=== PATIENT | female | born 2000 | race Hispanic/Latino ===

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

== ENCOUNTER 2019-09-28 17:47 | Emergency (ER) | payer SELFPAY ==
--- OUTSIDE RECORDS SUMMARY | 2019-09-28 17:54 | XMS REPORT | Continuity of Care Document ---
:2000 Author Organization [facility] t Address [address] [place] [address] Care Team Providers Name Role Phone Silva IBANEZ Attending Clinician Frandy Kearney DO Attending Clinician Camila Anthony Attending Clinician Ac SANCHEZ Attending Clinician Josh SANCHEZ Attending Clinician Henry Boston MD Attending Clinician [phone] Live Cabello MD Attending Clinician Henry Boston MD Admitting Clinician [phone] Problems This patient has no known problems. Allergies, Adverse Reactions, Alerts This patient has no known allergies or adverse reactions. Medications This patient has no known medications. Procedures This patient has no known procedures. Encounters Start End Encounter Admission Attending Care Care Encounter Source Date/Time Date/Time Type Type Clinicians Facility Department ID 2019-05-06 2019-05-06 [facility] JORGE ALBERTO Ascencio [id number] 19:22:57 19:37:57 ne Visit [facility] [id number] [facility] [id number] [place] AT [id number] [address] 2019-05-03 2019-05-03 Emergency Caio, [facility] [id number] 17:52:28 19:26:00 Meg Wise Abraham [id number] [place] [id number] [place] [id number] 2019-04-28 2019-04-28 Emergency Jada, [facility] [id number] 20:50:16 22:01:00 Jolene Jensen Abraham [id number] [place] [id number] [place] [id number] 2018-09-22 2018-09-22 Telephone Susanpati [facility] [id number] 00:00:00 00:00:00 Dipak Rosario [id number] [place] [id number] [place] [id number] [address] 2018-09-18 2018-09-21 [facility] Christian Moreno [facility] [id number] 20:03:25 18:40:00 Encounter Amber Boston on [id number] Prachi Cabello [place] [id number] [place] [id number] [facility] 2018-09-21 2018-09-21 Telephone Prachi Cabello [facility] [id number] 00:00:00 00:00:00 Live Rosario [id number] [place] [id number] [facility] [id number] [address] 2018-06-18 2018-06-18 Emergency E [facility] [id number] [facility] 19:39:00 19:39:00 Results This patient has no known results.
[2019-09-28 18:37] LABS: Urine Bacteria <20 /HPF (<20); Urine Culture Reflex Order REFLEXED; Urine Mucus 1+ /HPF (NONE SEEN); Urine RBC 20-50 /HPF (NONE SEEN)
--- NOTE | 2019-09-28 19:21 | RAD REPORT ---
EXAM DESCRIPTION: US - Transvaginal OB - 09/28/2019 7:11 pm CLINICAL HISTORY: Abd pain;Vaginal bleeding COMPARISON: Transvaginal OB dated 09/27/2019 FINDINGS: No IUP is identified on today's ultrasound. This would most likely indicate spontaneous ab ortion since the prior study performed yesterday. The maternal adnexa and ovaries are within normal limits. Normal Doppler blood flow was demonstrated to both ovaries. IMPRESSION: No IUP is detected on today's study. Given that IUP was detected on yesterday's study, t he findings would be most compatible with interval spontaneous .
[2019-09-28] MEDS ORDERED: FENTANYL CITR 100 MCG/2 ML ONE (19:52)
[2019-09-28] MEDS ORDERED: METHYLERGONOVINE 0.2 MG TAB PO ONE (20:06)
--- NOTE | 2019-09-28 20:16 | ER ---
Nurse's Notes [facility] Name: Josefa Jeffries Age: 19 yrs Sex: Female : 2000 Arrival Date: 09/28/2019 Time: 17:49 Bed 23 Private MD: Diagnosis: Complete miscarriage Presentation: 09/27 17:59 Chief complaint: Patient states: "I was here yesterday and was told I am having a jd3 threatened miscarriage. today I am hurting worse and passing even more large clots. I am also having nausea and vomiting.". Coronavirus screen: At this time, the client does not indicate any symptoms associated with coronavirus-19. Ebola Screen: Patient negative for fever greater than or equal to 101.5 degrees Fahrenheit, and additional compatible Ebola Virus Disease symptoms. Initial Sepsis Screen: Does the patient meet any 2 criteria? No. Patient's initial sepsis screen is negative. Does the patient have a suspected source of infection? No. Patient's initial sepsis screen is negative. Risk Assessment: Do you want to hurt yourself or someone else? Patient reports no desire to harm self or others. Onset of symptoms was September 28, 2019. 17:59 Method Of Arrival: Ambulatory j 17:59 Acuity: GAMAL 3 jd3 Triage Assessment: 18:20 General: Appears in no apparent distress. uncomfortable, Behavior is anxious. Pain: ls4 Complains of pain in suprapubic area Pain currently is 10 out of 10 on a pain scale. Quality of pain is described as crampy. EENT: No deficits noted. No signs and/or symptoms were reported regarding the EENT system. Neuro: No deficits noted. Cardiovascular: Rhythm is regular. Respiratory: Airway is patent Respiratory effort is even, unlabored. : Reports vaginal bleeding that is with clots, moderate flow. Derm: Skin is pink, warm \\T\\ dry. Skin temperature is. Musculoskeletal: No deficits noted. No signs and/or symptoms reported regarding the musculoskeletal system. 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 - Social history:: Smoking status: Patient denies any tobacco usage or history of. Screenin:59 Abuse screen: Denies threats or abuse. Denies injuries from another. Nutritional ls4 screening: No deficits noted. Tuberculosis screening: No symptoms or risk factors identified. Fall Risk None identified. Assessment: 18:10 Obstetrical Assessment: General assessment: awake and alert, skin warm and dry, ls4 respirations even and unlabored, Rupture of membranes noted. Patient reports abdominal cramping. 18:10 Cardiovascular: Capillary refill < 3 seconds Patient's skin is warm and dry. Rhythm is ls4 regular. : Reports vaginal bleeding that is with clots, moderate flow. 19:30 Reassessment: Patient appears in no apparent distress at this time. Patient and/or ls4 family updated on plan of care and expected duration. Pain level reassessed. Patient is alert, oriented x 3, equal unlabored respirations, skin warm/dry/pink. Vital Signs: 18:00 BP 116 / 61; Pulse 90; Resp 18 S; Temp 98.9(O); Pulse Ox 99% on R/A; Weight 66.68 kg jd3 (R); Height 5 ft. 2 in. (157.48 cm) (R); Pain 10/10; 18:00 Body Mass Index 26.89 (66.68 kg, 157.48 cm) jd3 ED Course: 17:49 Patient arrived in ED. mr 17:53 Liz Watson, CAITLIN is Primary Nurse. ls4 17:57 Maria Esther Stafford [facility]C [facility] snw 17:57 Wilmer Jacinto MD is Attending Physician. snw 17:59 No apparent distress. ls4 17:59 Patient has correct armband on for positive identification. Bed in low position. Call ls4 light in reach. Side rails up X 1. Pulse ox on. NIBP on. Verbal reassurance given. 17:59 No provider procedures requiring assistance completed. Urine collected: clean catch ls4 specimen, blood tinged. Patient did not have IV access during this emergency room visit. Patient maintains SpO2 saturation greater than 95% on room air. 18:00 Triage completed. jd3 18:01 Arm band placed on. jd3 19:09 US Transvaginal Ob In Process Unspecified. EDMS 19:30 Resting quietly. ls4 Administered Medications: 19:50 Drug: fentaNYL (PF) 50 mcg Route: IM; Site: right deltoid; ls4 20:01 Drug: METHERgine 0.2 mg Route: PO; ls4 Point of Care Testing: Urine : 18:53 na ls4 Outcome: 20:15 Discharge ordered by MD. leyva 20:50 Patient left the ED. mw2 Signatures: Dispatcher [employer] EDMD Maria Esther Stafford, WEB MARKETING MANAGER-C WEB MARKETING MANAGER-Csnw [place] mr TinocoCarson RN RN [email or web address] Coco Mata mw2 Liz Watson RN RN ls4
--- NOTE | 2019-09-28 20:16 | EDPHYS ---
Physician Documentation [facility] Name: Josefa Jeffries Age: 19 yrs Sex: Female : 2000 Arrival Date: 09/28/2019 Time: 17:49 Bed 23 Private MD: ED Physician Wilmer Jacinto HPI: 09/27 19:11 This 19 yrs old Female presents to ER via Ambulatory with complaints of snw Vaginal Bleeding, + Preg <12wks. 19:11 The patient presents with vaginal bleeding that is moderate, with clots. Onset: The snw symptoms/episode began/occurred acutely, and became worse this morning. Associated signs and symptoms: Pertinent positives: cramping. Severity of symptoms: At their worst the symptoms were moderate. The patient is sexually active. The patient has experienced a previous episode, yesterday. The patient has been recently seen by a physician: The patient has been recently seen at the [facility] Emergency Department, yesterday. 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 - Social history:: Smoking status: Patient denies any tobacco usage or history of. ROS: 19:04 Constitutional: Negative for fever, chills, and weight loss, Eyes: Negative for injury, snw pain, redness, and discharge, ENT: Negative for injury, pain, and discharge, Neck: Negative for injury, pain, and swelling, Cardiovascular: Negative for chest pain, palpitations, and edema, Respiratory: Negative for shortness of breath, cough, wheezing, and pleuritic chest pain, Abdomen/GI: Negative for abdominal pain, nausea, vomiting, diarrhea, and constipation, Back: Negative for injury and pain, MS/Extremity: Negative for injury and deformity, Skin: Negative for injury, rash, and discoloration, Neuro: Negative for headache, weakness, numbness, tingling, and seizure, Psych: Negative for depression, anxiety, suicide ideation, homicidal ideation, and hallucinations. 19:04 : Positive for vaginal bleeding, menstrual abnormality, pt was here yesterday and dx with threatened miscarriage, worsening cramping and bleeding today.. Exam: 19:20 Constitutional: This is a well developed, well nourished patient who is awake, alert, snw and in no acute distress. Head/Face: Normocephalic, atraumatic. Eyes: Pupils equal round and reactive to light, extra-ocular motions intact. Lids and lashes normal. Conjunctiva and sclera are non-icteric and not injected. Cornea within normal limits. Periorbital areas with no swelling, redness, or edema. ENT: Nares patent. No nasal discharge, no septal abnormalities noted. Tympanic membranes are normal and external auditory canals are clear. Oropharynx with no redness, swelling, or masses, exudates, or evidence of obstruction, uvula midline. Mucous membranes moist. Neck: Trachea midline, no thyromegaly or masses palpated, and no cervical lymphadenopathy. Supple, full range of motion without nuchal rigidity, or vertebral point tenderness. No Meningismus. Chest/axilla: Normal chest wall appearance and motion. Nontender with no deformity. No lesions are appreciated. Cardiovascular: Regular rate and rhythm with a normal S1 and S2. No gallops, murmurs, or rubs. Normal PMI, no JVD. No pulse deficits. Respiratory: Lungs have equal breath sounds bilaterally, clear to auscultation and percussion. No rales, rhonchi or wheezes noted. No increased work of breathing, no retractions or nasal flaring. Abdomen/GI: Soft, non-tender, with normal bowel sounds. No distension or tympany. No guarding or rebound. No evidence of tenderness throughout. Back: No spinal tenderness. No costovertebral tenderness. Full range of motion. Skin: Warm, dry with normal turgor. Normal color with no rashes, no lesions, and no evidence of cellulitis. MS/ Extremity: Pulses equal, no cyanosis. Neurovascular intact. Full, normal range of motion. Neuro: Awake and alert, GCS 15, oriented to person, place, time, and situation. Cranial nerves II-XII grossly intact. Motor strength 5/5 in all extremities. Sensory grossly intact. Cerebellar exam normal. Normal gait. Psych: Awake, alert, with orientation to person, place and time. Behavior, mood, and affect are within normal limits. Vital Signs: 18:00 BP 116 / 61; Pulse 90; Resp 18 S; Temp 98.9(O); Pulse Ox 99% on R/A; Weight 66.68 kg jd3 (R); Height 5 ft. 2 in. (157.48 cm) (R); Pain 10/10; 18:00 Body Mass Index 26.89 (66.68 kg, 157.48 cm) jd3 MDM: 18:21 Patient medically screened. snw 19:12 Data reviewed: vital signs, nurses notes. Data interpreted: Pulse oximetry: on room air snw is 99 %. Interpretation: normal. Counseling: I had a detailed discussion with the patient and/or guardian regarding: the historical points, exam findings, and any diagnostic results supporting the discharge/admit diagnosis, lab results, radiology results, US yesterday with gestational sac, cardiac activity. US today without any gestational sac noted per same US Shirrer. Special discussion: Based on the patient's Hx, exam, and Dx evaluation, there is no indication for emergent surgery or inpatient Tx. It is understood by the patient/guardian that if the Sx's persist or worsen they need to return immediately for re-evaluation. Based on the history and exam findings, there is no indication for further emergent testing or inpatient evaluation. I discussed with the patient/guardian the need to see the OB Gyne specialist for further evaluation of the symptoms. 09/27 18:02 Order name: Urine Microscopic Only; Complete Time: 18:38 snw 09/27 18:38 Order name: Urine Culture EDMS 09/27 18:22 Order name: US Transvaginal Ob; Complete Time: 19:23 snw Administered Medications: 19:50 Drug: fentaNYL (PF) 50 mcg Route: IM; Site: right deltoid; ls4 20:01 Drug: METHERgine 0.2 mg Route: PO; ls4 Point of Care Testing: Urine : 18:53 na ls4 Disposition: 09/28/19 20:15 Discharged to Home. Impression: Complete miscarriage. - Condition is Stable. - Discharge Instructions: Miscarriage. - Prescriptions for Methergine 0.2 mg Oral tablet - take 1 tablet by ORAL route every 8 hours for 2 days; 6 tablet. Vitamin 27- 0.8 mg Oral Tablet - take 1 tablet by ORAL route once daily; 60 tablet. - Medication Reconciliation Form, Thank You Letter, Antibiotic Education, Prescription Opioid Use form. - Follow up: Private Physician; When: 5 - 6 days; Reason: Recheck today's complaints, Continuance of care, Re-evaluation by your physician. Follow up: Emergency Department; When: As needed; Reason: Worsening of condition. Addendum: 10/01/2019 08:21 Co-signature as Attending Physician, Wilmer Jacinto MD I agree with the assessment and k dr plan of care. Signatures: Dispatcher [employer] EDUT Wilmer Jacinto MD MD kdr Waters, Shelly, BEHAVIORAL HEALTH TECH-C BEHAVIORAL HEALTH TECH-Csnw Carson Tinoco RN RN jd3 Coco Mata mw2 Liz Watson RN RN ls4 Corrections: (The following items were deleted from the chart) 09/27 20:50 20:15 09/28/2019 20:15 Discharged to Home. Impression: Complete miscarriage. Condition mw2 is Stable. Forms are Medication Reconciliation Form, Thank You Letter, Antibiotic Education, Prescription Opioid Use. Follow up: Private Physician; When: 5 - 6 days; Reason: Recheck today's complaints, Continuance of care, Re-evaluation by your physician. Follow up: Emergency Department; When: As needed; Reason: Worsening of condition. snw
[2019-09-28 20:58] VITALS: BP 116/61; TEMP 98.9; O2SAT 99
== END 2019-09-28 20:50 | disposition home or self-care (01) ==
LOC: ER 17:47
DX: O03.9 Complete or unspecified spontaneous abortion without complication (principal)
CPT/HCPCS: 76817; 81015; 87086; 87088; 96372; 99284; J3010

== ENCOUNTER 2019-11-19 08:26 | Emergency (ER) | payer SELFPAY ==
--- NOTE | 2019-11-19 09:21 | EDPHYS ---
Physician Documentation [facility] Name: Josefa Jeffries Age: 19 yrs Sex: Female : 2000 Arrival Date: 11/19/2019 Time: 08:29 Bed 6 Private MD: ED Physician Narciso Echevarria HPI: 11/18 09:19 This 19 yrs old Female presents to ER via Ambulatory with complaints of kb Toothache. 09:19 The patient presents with pain, redness, swelling. The problem is located in the lower kb right third molar (#32) and lower left third molar (#17) and upper left third molar (#16) and upper right third molar (#1). Onset: The symptoms/episode began/occurred yesterday. Duration: The symptoms are continuous. Modifying factors: The symptoms are alleviated by nothing, the symptoms are aggravated by nothing. Associated signs and symptoms: Pertinent positives: pain, redness in area, swelling. Severity of symptoms: At their worst the symptoms were moderate, in the emergency department the symptoms are unchanged. The patient has experienced similar episodes in the past, several times. The patient has not recently seen a physician. "I have really bad impacted wisdom teeth and they are hurting me really bad. It only gets this bad when they are infected. I've been to a dentist and was told I need them out, but no one will help me get them out.". Historical: - Allergies: 08:41 No Known Allergies; hb - PSHx: 08:41 D \\T\\ C; hb - Immunization history:: Adult Immunizations up to date. - Social history:: Smoking status: Patient denies any tobacco usage or history of. ROS: 09:18 Constitutional: Negative for fever, chills, and weight loss, Cardiovascular: Negative kb for chest pain, palpitations, and edema, Respiratory: Negative for shortness of breath, cough, wheezing, and pleuritic chest pain, Abdomen/GI: Negative for abdominal pain, nausea, vomiting, diarrhea, and constipation, MS/Extremity: Negative for injury and deformity, Skin: Negative for injury, rash, and discoloration, Neuro: Negative for headache, weakness, numbness, tingling, and seizure. 09:18 ENT: Positive for dental pain. Exam: 09:18 Constitutional: This is a well developed, well nourished patient who is awake, alert, kb and in no acute distress. Head/Face: Normocephalic, atraumatic. Chest/axilla: Normal chest wall appearance and motion. Nontender with no deformity. No lesions are appreciated. Cardiovascular: Regular rate and rhythm with a normal S1 and S2. No gallops, murmurs, or rubs. Normal PMI, no JVD. No pulse deficits. Respiratory: Lungs have equal breath sounds bilaterally, clear to auscultation and percussion. No rales, rhonchi or wheezes noted. No increased work of breathing, no retractions or nasal flaring. Abdomen/GI: Soft, non-tender, with normal bowel sounds. No distension or tympany. No guarding or rebound. No evidence of tenderness throughout. Skin: Warm, dry with normal turgor. Normal color with no rashes, no lesions, and no evidence of cellulitis. MS/ Extremity: Pulses equal, no cyanosis. Neurovascular intact. Full, normal range of motion. Neuro: Awake and alert, GCS 15, oriented to person, place, time, and situation. Cranial nerves II-XII grossly intact. Motor strength 5/5 in all extremities. Sensory grossly intact. Cerebellar exam normal. Normal gait. 09:18 ENT: Dental exam: gum swelling, specifically in the upper right third molar (#1), upper left third molar (#16), lower left third molar (#17) and lower right third molar (#32), pain, that is moderate, specifically in the upper right third molar (#1), upper left third molar (#16), lower left third molar (#17) and lower right third molar (#32). Vital Signs: 08:39 BP 119 / 75; Pulse 92; Resp 16; Temp 97.4; Pulse Ox 100% on R/A; Weight 62.6 kg; Height hb 5 ft. 2 in. (157.48 cm); Pain 10/10; 08:39 Body Mass Index 25.24 (62.60 kg, 157.48 cm) hb MDM: 09:13 Patient medically screened. kb 09:18 Data reviewed: vital signs, nurses notes. Data interpreted: Pulse oximetry: on room air kb is 100 %. Interpretation: normal. Counseling: I had a detailed discussion with the patient and/or guardian regarding: the historical points, exam findings, and any diagnostic results supporting the discharge/admit diagnosis, the need for outpatient follow up, a dentist, to return to the emergency department if symptoms worsen or persist or if there are any questions or concerns that arise at home. 09:20 ED course: Pt educated on need for follow up with a dentist and resources that may be kb helpful.. Administered Medications: 09:33 Drug: Augmentin 875 mg Route: PO; ph 09:52 Follow up: Response: No adverse reaction ph 09:34 Drug: TORadol 30 mg Route: IM; Site: right deltoid; ph 09:52 Follow up: Response: No adverse reaction ph Disposition: 17:56 Co-signature as Attending Physician, Narciso Echevarria MD. rn Disposition: 11/19/19 09:21 Discharged to Home. Impression: Periapical abscess without sinus. - Condition is Stable. - Discharge Instructions: Dental Pain, [id number], Dental Abscess, [id number]. - Prescriptions for Augmentin 875- 125 mg Oral Tablet - take 1 tablet by ORAL route every 12 hours for 10 days; 20 tablet. Ibuprofen 800 mg Oral Tablet - take 1 tablet by ORAL route every 8 hours As needed take with food; 30 tablet. - Medication Reconciliation Form, Thank You Letter, Antibiotic Education, Prescription Opioid Use, Work release form form. - Follow up: Emergency Department; When: As needed; Reason: Worsening of condition. Follow up: Private Physician; When: 2 - 3 days; Reason: Recheck today's complaints, Continuance of care, Re-evaluation by your physician. Signatures: Jaylyn Nix, HANDBAG STITCHER-C HANDBAG STITCHER-Ckb Narciso Echevarria MD MD rn Hall, Patricia, RN RN Kalyani Muñoz RN RN Corrections: (The following items were deleted from the chart) 09: 09:21 11/19/2019 09:21 Discharged to Home. Impression: Periapical abscess without ph sinus. Condition is Stable. Forms are Medication Reconciliation Form, Thank You Letter, Antibiotic Education, Prescription Opioid Use. Follow up: Emergency Department; When: As needed; Reason: Worsening of condition. Follow up: Private Physician; When: 2 - 3 days; Reason: Recheck today's complaints, Continuance of care, Re-evaluation by your physician. kb
--- NOTE | 2019-11-19 09:21 | ER ---
Nurse's Notes [facility] Name: Josefa Jeffries Age: 19 yrs Sex: Female : 2000 Arrival Date: 11/19/2019 Time: 08:29 Bed 6 Private MD: Diagnosis: Periapical abscess without sinus Presentation: 11/18 08:39 Chief complaint: Bilateral wisdom tooth pain 11/23. Coronavirus screen: At this time, hb the client does not indicate any symptoms associated with coronavirus-19. Ebola Screen: No symptoms or risks identified at this time. Initial Sepsis Screen: Does the patient meet any 2 criteria? No. Patient's initial sepsis screen is negative. Does the patient have a suspected source of infection? No. Patient's initial sepsis screen is negative. Risk Assessment: Do you want to hurt yourself or someone else? Patient reports no desire to harm self or others. Onset of symptoms was November 19, 2019. 08:39 Method Of Arrival: Ambulatory hb 08:39 Acuity: GAMAL 4 hb Historical: - Allergies: 08:41 No Known Allergies; hb - PSHx: 08:41 D \T\ C; hb - Immunization history:: Adult Immunizations up to date. - Social history:: Smoking status: Patient denies any tobacco usage or history of. Screenin:10 Abuse screen: Denies threats or abuse. Denies injuries from another. Nutritional ph screening: No deficits noted. Tuberculosis screening: No symptoms or risk factors identified. Fall Risk None identified. Assessment: 09:35 General: Appears in no apparent distress. uncomfortable, well groomed, Behavior is ph calm, cooperative, appropriate for age, Denies fever. Pain: Complains of pain in right mandible and left mandible. Neuro: Level of Consciousness is awake, alert, obeys commands, Oriented to person, place, time, situation. Cardiovascular: Capillary refill < 3 seconds in bilateral fingers Patient's skin is warm and dry. Respiratory: Airway is patent Respiratory effort is even, unlabored. GI: No signs and/or symptoms were reported involving the gastrointestinal system. EENT: Reports pain in bilateral bottom wisdom teeth when swallowing. Derm: Skin is intact, is healthy with good turgor, Skin is pink, warm \T\ dry. Musculoskeletal: Circulation, motion, and sensation intact. Range of motion: intact in all extremities. 09:50 Reassessment: Patient appears in no apparent distress at this time. Patient and/or ph family updated on plan of care and expected duration. Pain level reassessed. Patient is alert, oriented x 3, equal unlabored respirations, skin warm/dry/pink. Pt d/c home, provided w/ work note and w/ info for [facility] for low cost dental care. Vital Signs: 08:39 BP 119 / 75; Pulse 92; Resp 16; Temp 97.4; Pulse Ox 100% on R/A; Weight 62.6 kg; Height hb 5 ft. 2 in. (157.48 cm); Pain 10/10; 08:39 Body Mass Index 25.24 (62.60 kg, 157.48 cm) hb ED Course: 08:29 Patient arrived in ED. ds1 08:40 Triage completed. hb 08:41 Arm band placed on. hb 09:10 Myra Nuñez, RN is Primary Nurse. ph 09:10 Patient has correct armband on for positive identification. Bed in low position. Call ph light in reach. Side rails up X 1. Pulse ox on. NIBP on. Door closed. Noise minimized. Warm blanket given. 09:12 Jaylyn Nix FNP-C [facility]. kb 09:12 Narciso Echevarria MD is Attending Physician. kb 09:50 No provider procedures requiring assistance completed. Patient did not have IV access ph during this emergency room visit. Administered Medications: 09:33 Drug: Augmentin 875 mg Route: PO; ph 09:52 Follow up: Response: No adverse reaction ph 09:34 Drug: TORadol 30 mg Route: IM; Site: right deltoid; ph 09:52 Follow up: Response: No adverse reaction ph Outcome: 09:21 Discharge ordered by . kb 09:50 Discharged to home ambulatory. ph 09:50 Condition: good 09:50 Discharge instructions given to patient, Instructed on discharge instructions, follow up and referral plans. medication usage, Demonstrated understanding of instructions, follow-up care, medications, Prescriptions given X 2. 09:52 Patient left the ED. ph Signatures: Jaylyn Nix FNP-C PANTS PRESSER AUTOMATIC-Rufina Velazquez ds1 Myra Nuñez RN RN ph Kalyani Muñoz RN RN Corrections: (The following items were deleted from the chart) 08:41 08:39 Chief complaint: Bilateral wisdom tooth pain 11/23. hb hb
[2019-11-19] MEDS ORDERED: KETOROLAC 30 MG/ML INJ ONE (09:40)
[2019-11-19] MEDS ORDERED: AMOX/K CLAV 875 MG TAB ONE (09:40)
--- OUTSIDE RECORDS SUMMARY | 2019-11-22 03:45 | XMS REPORT | Continuity of Care Document ---
:2000 Author Organization [facility] t Address [address] [place] [address] Care Team Providers Name Role Phone Silva IBANEZ Attending Clinician Frandy Kearney DO Attending Clinician Camila Anthony Attending Clinician Ac SANCHEZ Attending Clinician Josh SANCHEZ Attending Clinician Henry Boston MD Attending Clinician [phone] Live Cabello MD Attending Clinician Henry Boston MD Admitting Clinician [phone] Problems This patient has no known problems. Allergies, Adverse Reactions, Alerts This patient has no known allergies or adverse reactions. Medications This patient has no known medications. Procedures This patient has no known procedures. Encounters Start End Encounter Admission Attending Care Care Encounter Source Date/Time Date/Time Type Type Clinicians Facility Department ID 2019-05-06 2019-05-06 Telemedici JORGE ALBERTO Ascencio [id number] 19:22:57 19:37:57 ne Visit [facility] [id number] [facility] [id number] CENTER AT [id number] MAYELA FRAGOSO 2019-05-03 2019-05-03 Emergency Caio, [facility] [id number] 17:52:28 19:26:00 Meg Wise Abraham [id number] [place] [id number] [place] [id number] 2019-04-28 2019-04-28 Emergency Jada, [facility] [id number] 20:50:16 22:01:00 Jolene Jensen [place] [id number] [place] [id number] [place] [id number] 2018-09-22 2018-09-22 Telephone Susanpati [facility] [id number] 00:00:00 00:00:00 Dipak Rosario [id number] [place] [id number] [facility] [phone] [address] 2018-09-18 2018-09-21 [facility] Christian Moreno [facility] [id number] 20:03:25 18:40:00 Encounter Amber Boston on [id number] Prachi Cabello [place] [id number] [place] [id number] [facility] 2018-09-21 2018-09-21 Telephone Prachi Cabello [facility] [id number] 00:00:00 00:00:00 Live Rosario [id number] [place] [id number] Profess[place] [id number] [address] 2018-06-18 2018-06-18 Emergency E [facility] [address] [facility] 19:39:00 19:39:00 Results This patient has no known results.
== END 2019-11-19 09:52 | disposition home or self-care (01) ==
LOC: ER 08:26
DX: K04.7 Periapical abscess without sinus (principal)
CPT/HCPCS: 96372; 99283

== ENCOUNTER 2020-06-17 10:21 | Emergency (ER) | payer OTHER ==
--- OUTSIDE RECORDS SUMMARY | 2020-06-17 10:24 | XMS REPORT | Continuity of Care Document ---
:2000 Author Organization [facility] t Address [address] [place] [address] Care Team Providers Name Role Phone Josh SANCHEZ Attending Clinician Doctor Unassigned, Name Attending Clinician Unavailable Silva IBANEZ Attending Clinician Frandy Kearney DO Attending Clinician Camila Anthony Attending Clinician Ac SANCHEZ Attending Clinician Henry Boston MD Attending Clinician [phone] Live Cabello MD Attending Clinician Henry Boston MD Admitting Clinician [phone] Problems This patient has no known problems. Allergies, Adverse Reactions, Alerts This patient has no known allergies or adverse reactions. Medications This patient has no known medications. Procedures This patient has no known procedures. Encounters Start End Encounter Admission Attending Care Care Encounter Source Date/Time Date/Time Type Type Clinicians Facility Department ID 2020-02-03 2020-02-03 [facility] [id number] 09:18:00 12:13:00 [facility] [id number] [place] [id number] [place] [id number] 2020-02-03 2020-02-03 Orders Doctor [place] [id number] 00:00:00 00:00:00 Only Unassigned, JAILENE [id number] [facility] [id number] 2019-05-06 2019-05-06 [facility] [id number] 19:22:57 19:37:57 ne Visit [facility] SPECIALTY [id number] CARE [id number] CENTER AT [id number] MAYELA Kearney [facility] 2019-05-03 2019-05-03 [facility] 1.2.840.114 [id number] 17:52:28 19:26:00 Meg Rosario [id number] [place] [id number] [place] [id number] 2019-04-28 2019-04-28 Emergency Jada [facility] 1.2.840.114 [id number] 20:50:16 22:01:00 Jolene Rosario [id number] [place] [id number] [place] [id number] 2018-09-22 2018-09-22 Telephone Ac [facility] [id number] 00:00:00 00:00:00 Dipak Rosario [id number] [place] [id number] [facility] [id number] [address] 2018-09-18 2018-09-21 [facility] Christian Moreno [facility] 1.2.840.1 [id number] 20:03:25 18:40:00 Encounter Amber Boston [id number] Prachi Cabello [id number] [place] [id number] 2018-09-21 2018-09-21 Telephone Prachi Cabello [facility] 1.2.840.114 [id number] 00:00:00 00:00:00 Live Rosario [id number] [place] [id number] [place] [id number] [address] 2018-06-18 2018-06-18 Emergency E [facility] [address] [facility] 19:39:00 19:39:00 Results This patient has no known results.
[2020-06-17 11:20] LABS: Urine Blood Negative (Negative); Urine Glucose Negative (Negative); Urine Protein Negative (Negative); Urine pH 8.5 (5.0-7.0)
[2020-06-17 12:36] LABS: Urine Amorphous Sediment 1+ /HPF (NONE SEEN); Urine Bacteria <20 /HPF (<20); Urine RBC <5 /HPF (NONE SEEN)
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
[2020-06-17] MEDS ORDERED: MORPHINE 2 MG/ML SYR ONE (14:55)
[2020-06-17] MEDS ORDERED: ONDANSETRON 4 MG/2 ML VIAL ONE (14:55)
[2020-06-17 15:14] VITALS: O2SAT 100
[2020-06-17 15:15] VITALS: TEMP 98.1
[2020-06-17 15:17] VITALS: BP 114/65
== END 2020-06-17 15:05 | disposition home or self-care (01) ==
LOC: ER 10:21
DX: O9A.213 Injury, poisoning and certain other consequences of external causes complicating pregnancy, third trimester (principal); S29.012A Strain of muscle and tendon of back wall of thorax, initial encounter; Z3A.31 31 weeks gestation of pregnancy; V49.40XA Driver injured in collision with unspecified motor vehicles in traffic accident, initial encounter
CPT/HCPCS: 87088; 87086; 81025; 70450; 72125; 71260; 76815; Q9967; J2270; J2405; 81003; 81015; 96374; 96375; 99284

== ENCOUNTER 2021-07-23 12:55 | Emergency (ER) | payer OTHER ==
--- OUTSIDE RECORDS SUMMARY | 2021-07-23 13:01 | XMS REPORT | Continuity of Care Document ---
:2000 Author Organization [facility] t Address [address] [place] [address] Care Team Providers Name Role Phone PCP, DOES NOT HAVE A Primary Care Physician Unavailable RIDDLE Attending Clinician Unavailable Norris ACNP Attending Clinician Doctor Unassigned, Name Attending Clinician Unavailable Rebecca Smart Attending Clinician Unavailable Aliya Crawford Attending Clinician Unavailable Brigette Maddox Attending Clinician Unavailable Lv Lange LMSW Attending Clinician Unavailable Lv DALEY Attending Clinician Unavailable Josh SANCHEZ Attending Clinician Silva IBANEZ Attending Clinician Frandy Kearney DO Attending Clinician Camila Anthony Attending Clinician CAMILA ELIAS Attending Clinician Unavailable Ac SANCHEZ Attending Clinician Darvin SANCHEZ, eHnry Attending Clinician [phone] Irineo SANCHEZ, Live Attending Clinician Rebecca Smart Admitting Clinician Unavailable Rebecca FLORES Admitting Clinician Unavailable Darvin SANCHEZ, Henry Admitting Clinician Payers Payer Name Policy Type Policy Number Effective Date Expiration Date [employer] [id number] 2021 HEALTH 00:00:00 [place] [id number] 2018 2019 WOMEN 00:00:00 00:00:00 Problems Condition Condition Condition Status Onset Resolution Last Treating Co mments Source Name Details Category Date Date Treatment Clinician Date Nausea and Nausea and Disease Active U nivers vomiting vomiting 8-08 ity of 00:00: [place] [facility] Pain of Pain of Disease Active Univers upper upper 8-08 ity of abdomen abdomen 00:00: [place] [facility] Gastritis Gastritis Disease Active Overview: Univers 8-08 Formattin ity of 00:00: g of this [place] 00 note Medical might be Branch different from the original. 09/21/18 - Protonix 40 mg QD. S/p EGD by Dr. Cortney rodriguez. Endometrit Endometrit Disease Active U nivers is is 8-07 ity of 00:00: [place] 00 Medical Branch Fever Fever Disease Active Univers 8-05 ity of 00:00: [place] [facility] Closed Closed Disease Active Overview: Univer s fracture fracture 8-16 Formattin ity of of ankle of ankle 00:00: g of this [place] 00 note Medical might be Branch different from the original. ICD10 Diagnosis Term Airline Reservation Agent Utility Allergies, Adverse Reactions, Alerts Allergy Allergy Status Severity Reaction(s) Onset Inactive Treating Comm ents Source Name Type Date Date Clinician No Known DA Active U [facility] Allergie 7-06 Clear s 00:00: [place] 00 [facility] No Known DA Active U [facility] Allergie 7-06 Clear s 00:00: Thompson [facility] No Known DA Active U [facility] Allergie 7-04 Clear s 00:00: [place] 00 [facility] No Known DA Active U [facility] Allergie 7-04 Clear s 00:00: Thompson [facility] No Known DA Active U [facility] Allergie 6-29 Clear s 00:00: [place] 00 [facility] No Known DA Active U [facility] Allergie 6-29 Clear s 00:00: Thompson [facility] No Known DA Active U [facility] Allergie 6-18 Clear s 00:00: [place] 00 [facility] No Known DA Active U [facility] Allergie 6-18 Clear s 00:00: Thompson [facility] No Known DA Active U [facility] Allergie 1-20 Clear s 00:00: Thompson [facility] No Known DA Active U [facility] Allergie 1-20 Clear s 00:00: Thompson [facility] NO KNOWN Drug Active Univers ALLERGIE Class ity of S [facility] Social History Social Habit Start Date Stop Date Quantity Comments Source History SDOH University o f Alcohol Frequency [place] [facility] History SDOH University o f Alcohol Std [place] [facility] Drinks Branch History SDOH University o f Alcohol Binge [place] [facility] Exposure to 2021-07-12 2021-07-22 Not sure [facility] SARS-CoV-2 00:00:00 10:12:00 [facility] (event) Branch Alcohol intake 2021-07-22 2021-07-22 Current drinker Unive rsity of 00:00:00 00:00:00 of alcohol [facility] (finding) Branch Alcohol Comment 2018-09-19 2018-09-19 in the past Universi ty of 00:00:00 00:00:00 [facility] Tobacco use and 2017-02-26 2017-02-26 Never used Universit y of exposure 00:00:00 00:00:00 [facility] Sex Assigned At [birth year] Universit y of 00:00:00 00:00:00 [facility] Smoking Status Start Date Stop Date Source Never smoker University Te [facility] Branch Medications Ordered Filled Start Stop Current Ordering Indication Dosage Frequency Signature Comments Components Source Medication Medication Date Date Medication? Clinician (SIG) Name Name zacariasmaren 2021- No 1000mg 1,000 mg, Univers n 07-22 Oral, ity of (ZITHROMAX) 20:45: 20:12 [place]CE, 1 [place] tablet 00 :00 dose, On Medical 1,000 mg Tue07/22/21 Branc h at 1545, JAQUI
Re ason for Anti-Infec tive: Empiric Therapy for Suspected Infection< br>Empiric Therapy Site: Abdominal< br>Duratio n of therapy: 7 days cefTRIAXone 2021- No 1000mg 1,000 mg, Univers (ROCEPHIN) 07-22 IV ity of 1,000 mg in 20:45: 20:12 Piggyback, [place] NaCl 0.9% 00 :00 ONCE, 1 Medical (NS) 50 mL dose, On Branc h MINI-BAG Tue07/22/21 at 1545, Administer over 30 Minutes, 50 mL
R patricia for Anti-Infec tive: Empiric Therapy for Suspected Infection< br>Empiric Therapy Site: Abdominal< br>Duratio n of therapy: 72 hours dicyclomine 2021- No 20mg 20 mg, Uni vers (BENTYL) 07-22 Oral, ity of tablet 20 20:00: 19:00 ONCE, 1 [place] mg 00 :00 dose, On Medical Tue07/22/21 Branch at 1500, JAQUI ketorolac 2021- No 15mg 15 mg, Unive rs (TORADOL) 07-22 Slow IV ity of injection 18:00: 16:59 Push, [place] 15 mg 00 :00 ONCE, 1 Medical dose, On Branch Tue07/22/21 at 1300, Routine ondansetron 2021- No 4mg 4 mg, Slow Univers (ZOFRAN 07-22 IV Push, ity of (PF)) 16:45: 16:02 ONCE, 1 [place] injection 4 00 :00 dose, On Medi jelly mg Tue07/22/21 Branch at 1145, JAQUI NaCl 0.9% 2021- No 1000mL at 999 Uni vers (NS) bolus 07-22 mL/hr, ity of infusion 16:45: 19:25 1,000 mL, [place] 1,000 mL 00 :00 IV Medical Infusion, Branch ONCE, 1 dose, On Tue07/22/21 at 1145, JAQUI ondansetron 2021- No 4mg 4 mg, Univ ers (ZOFRAN-ODT -09 19-08 Oral, ity of ) 16:15: 15:11 ONCE, 1 [place] disintegrat 00 :00 dose, On Medi jelly ing tablet Tue07/22/21 Bra nch 4 mg at 1115, Routine acetaminoph 2021- No 650mg 650 mg, U nivers en 07-22-08 Oral, ity of (TYLENOL) 16:15: 15:14 ONCE, 1 [place] tablet 650 00 :00 dose, On Medic al mg Tue07/22/21 Branch at 1115, JAQUI azithromyci Yes [id number] 500mg Take 1 Univers n 500 mg 6-08 tablet by ity of tablet 00:00: mouth [place] 00 daily. Medical Branch dicyclomine Yes [id number] 20mg Take 1 Univers 20 mg 6-08 tablet by ity of tablet 00:00: mouth 4 [place] 00 (four) Medical times Branch daily. ondansetron Yes [id number] 4mg Take 1 Univers 4 mg 6-08 tablet by ity of disintegrat 00:00: mouth [place] ing tablet 00 every 8 Medica l (eight) Branch hours as needed for Nausea and Vomiting (N/V). ondansetron 2021- No [id number] 4mg Take 1 Univers 4 mg 6-08 06-08 tablet by ity of disintegrat 00:00: 00:00 [place] ing tablet 00 :00 every 8 Medica l (eight) Branch hours as needed for Nausea and Vomiting (N/V). azithromyci 2021- No [id number] 500mg Take 1 Univers n 500 mg 6-08 06-08 tablet by ity o f tablet 00:00: 00:00 mouth [place] 00 :00 daily for Medical 5 days. Branch dicyclomine 2021- No [id number] 20mg Take 1 Univers 20 mg 6-08 06-08 tablet by ity of tablet 00:00: 00:00 mouth 4 [place] 00 :00 (four) Medical times Branch daily. Nitrofurant 2019-02 Yes [id number] 100mg Take 1 Univers oin&Nit. 2-20 capsule by ity o f Macrocryst 00:00: mouth 2 [place] (MACROBID) 00 (two) Medical 100 mg times Branch capsule daily. Nitrofurant 2019-02 Yes [id number] 100mg Take 1 Univers oin&Nit. 2-20 capsule by ity o f Macrocryst 00:00: mouth 2 [place] (MACROBID) 00 (two) Medical 100 mg times Branch capsule daily. Nitrofurant 2019-02 Yes [id number] 100mg Take 1 Univers oin&Nit. 2-20 capsule by ity o f Macrocryst 00:00: mouth 2 [place] (MACROBID) 00 (two) Medical 100 mg times Branch capsule daily. Nitrofurant 2019-02 Yes [id number] 100mg Take 1 Univers oin&Nit. 2-20 capsule by ity o f Macrocryst 00:00: mouth 2 [place] (MACROBID) 00 (two) Medical 100 mg times Branch capsule daily. ibuprofen 2020- No 600mg 600 mg, Uni vers (IBU) 05-02 Oral, ity of tablet 600 23:00: 23:11 ONCE, 1 [place] mg 00 :00 dose, [facility] Medical 05/03/19 at Branch 1800, JAQUI ibuprofen 2018-02 Yes [id number] 600mg Take 1 Univers 600 mg 1-05 tablet by ity of tablet 00:00: mouth (three) Medical times Branch daily with meals. ibuprofen 2018-02 Yes [id number] 600mg Take 1 Univers 600 mg 1-05 tablet by ity of tablet 00:00: mouth (three) Medical times Branch daily with meals. ibuprofen 2018-02 Yes [id number] 600mg Take 1 Univers 600 mg 1-05 tablet by ity of tablet 00:00: mouth (three) Medical times Branch daily with meals. ibuprofen 2018- Yes [id number] 600mg Take 1 Univers 600 mg 1-05 tablet by ity of tablet 00:00: mouth 3 (three) Medical times Branch daily with meals. ibuprofen 2018-02 Yes [id number] 600mg Take 1 Univers 600 mg 1-05 tablet by ity of tablet 00:00: mouth 3 (three) Medical times Branch daily with meals. ibuprofen 2018-02 Yes [id number] 600mg Take 1 Univers 600 mg 1-05 tablet by ity of tablet 00:00: mouth 3 [place] 00 (three) Medical times Branch daily with meals. ibuprofen 2018-02 Yes [id number] 600mg Take 1 Univers 600 mg 1-05 tablet by ity of tablet 00:00: mouth 3 [place] 00 (three) Medical times Branch daily with meals. ibuprofen 2018-02 Yes [id number] 600mg Take 1 Univers 600 mg 1-05 tablet by ity of tablet 00:00: mouth 3 [place] 00 (three) Medical times Branch daily with meals. levocetiriz 2018-02 Yes [id number] 5mg Take 1 Univers ine 5 mg 0-17 tablet by ity of tablet 00:00: mouth [place] 00 every Medical evening. Branch levocetiriz 2018-02 Yes [id number] 5mg Take 1 Univers ine 5 mg 0-17 tablet by ity of tablet 00:00: mouth [place] 00 every Medical evening. Branch levocetiriz 2018-02 Yes [id number] 5mg Take 1 Univers ine 5 mg 0-17 tablet by ity of tablet 00:00: mouth [place] 00 every Medical evening. Branch levocetiriz 2018-02 Yes [id number] 5mg Take 1 Univers ine 5 mg 0-17 tablet by ity of tablet 00:00: mouth [place] 00 every Medical evening. Branch levocetiriz 2018-02 Yes [id number] 5mg Take 1 Univers ine 5 mg 0-17 tablet by ity of tablet 00:00: mouth [place] 00 every Medical evening. Branch levocetiriz 2018-02 Yes [id number] 5mg Take 1 Univers ine 5 mg 0-17 tablet by ity of tablet 00:00: mouth [place] 00 every Medical evening. Branch levocetiriz 2018-02 Yes [id number] 5mg Take 1 Univers ine 5 mg 0-17 tablet by ity of tablet 00:00: mouth [place] 00 every Medical evening. Branch levocetiriz 2018-02 Yes [id number] 5mg Take 1 Univers ine 5 mg 0-17 tablet by ity of tablet 00:00: mouth [place] 00 every Medical evening. Branch predniSONE 2018-02 Yes [id number] Take one Univers 20 mg 0-15 tablet by ity of tablet 00:00: mouth [place] 00 daily Medical Branch famotidine 2018-02 Yes [id number] 40mg Take 1 Univers (PEPCID) 40 0-15 tablet by ity of mg tablet 00:00: mouth [place] 00 daily. Medical Branch predniSONE 2019- Yes [id number] Take one Univers 20 mg 0-15 tablet by ity of tablet 00:00: mouth [place] 00 daily Medical Branch famotidine 2019- Yes [id number] 40mg Take 1 Univers (PEPCID) 40 0-15 tablet by ity of mg tablet 00:00: mouth [place] 00 daily. Medical Branch predniSONE 2019- Yes [id number] Take one Univers 20 mg 0-15 tablet by ity of tablet 00:00: mouth [place] 00 daily Medical Branch famotidine 2019- Yes [id number] 40mg Take 1 Univers (PEPCID) 40 0-15 tablet by ity of mg tablet 00:00: mouth [place] 00 daily. Medical Branch predniSONE 2018- Yes [id number] Take one Univers 20 mg 0-15 tablet by ity of tablet 00:00: mouth [place] 00 daily Medical Branch famotidine 2019- Yes [id number] 40mg Take 1 Univers (PEPCID) 40 0-15 tablet by ity of mg tablet 00:00: mouth [place] 00 daily. Medical Branch predniSONE 2018- Yes [id number] Take one Univers 20 mg 0-15 tablet by ity of tablet 00:00: mouth [place] 00 daily Medical Branch famotidine 2019- Yes [id number] 40mg Take 1 Univers (PEPCID) 40 0-15 tablet by ity of mg tablet 00:00: mouth [place] 00 daily. Medical Branch predniSONE 2018- Yes [id number] Take one Univers 20 mg 0-15 tablet by ity of tablet 00:00: mouth [place] 00 daily Medical Branch famotidine 2019- Yes [id number] 40mg Take 1 Univers (PEPCID) 40 0-15 tablet by ity of mg tablet 00:00: mouth [place] 00 daily. Medical Branch predniSONE 2019- Yes [id number] Take one Univers 20 mg 0-15 tablet by ity of tablet 00:00: mouth [place] 00 daily Medical Branch famotidine 2019- Yes [id number] 40mg Take 1 Univers (PEPCID) 40 0-15 tablet by ity of mg tablet 00:00: mouth [place] 00 daily. Medical Branch predniSONE 2019- Yes [id number] Take one Univers 20 mg 0-15 tablet by ity of tablet 00:00: mouth [place] 00 daily Medical Branch famotidine 2018-02 Yes [id number] 40mg Take 1 Univers (PEPCID) 40 0-15 tablet by ity of mg tablet 00:00: mouth [place] 00 daily. Medical Branch ondansetron 2018-02 Yes [id number] 4mg Take 1 Univers 4 mg 0-07 tablet by ity of disintegrat 00:00: mouth [place] ing tablet 00 every 8 Medica l (eight) Branch hours as needed for Nausea and Vomiting (N/V). ondansetron 2018-02 Yes [id number] 4mg Take 1 Univers 4 mg 0-07 tablet by ity of disintegrat 00:00: mouth [place] ing tablet 00 every 8 Medica l (eight) Branch hours as needed for Nausea and Vomiting (N/V). ondansetron 2018-02 Yes [id number] 4mg Take 1 Univers 4 mg 0-07 tablet by ity of disintegrat 00:00: mouth [place] ing tablet 00 every 8 Medica l (eight) Branch hours as needed for Nausea and Vomiting (N/V). ondansetron 2018-02 Yes [id number] 4mg Take 1 Univers 4 mg 0-07 tablet by ity of disintegrat 00:00: mouth [place] ing tablet 00 every 8 Medica l (eight) Branch hours as needed for Nausea and Vomiting (N/V). ondansetron 2018-02 Yes [id number] 4mg Take 1 Univers 4 mg 0-07 tablet by ity of disintegrat 00:00: mouth [place] ing tablet 00 every 8 Medica l (eight) Branch hours as needed for Nausea and Vomiting (N/V). ondansetron 2018-02 Yes [id number] 4mg Take 1 Univers 4 mg 0-07 tablet by ity of disintegrat 00:00: mouth [place] ing tablet 00 every 8 Medica l (eight) Branch hours as needed for Nausea and Vomiting (N/V). ondansetron 2018-02 Yes [id number] 4mg Take 1 Univers 4 mg 0-07 tablet by ity of disintegrat 00:00: mouth [place] ing tablet 00 every 8 Medica l (eight) Branch hours as needed for Nausea and Vomiting (N/V). ondansetron 2018-02- No [id number] 4mg Take 1 Univers 4 mg 0-07 06-08 tablet by ity of disintegrat 00:00: 00:00 mouth [place] ing tablet 00 :00 every 8 Medica l (eight) Branch hours as needed for Nausea and Vomiting (N/V). pantoprazol Yes [id number] 40mg Take 1 Univers e 40 mg EC 8-09 tablet by ity of tablet 00:00: mouth [place] 00 daily. [facility] Branch pantoprazol Yes [id number] 40mg Take 1 Univers e 40 mg EC 8-09 tablet by ity of tablet 00:00: mouth [place] 00 daily. [facility] Branch pantoprazol Yes [id number] 40mg Take 1 Univers e 40 mg EC 8-09 tablet by ity of tablet 00:00: mouth [place] 00 daily. [facility] Branch pantoprazol Yes [id number] 40mg Take 1 Univers e 40 mg EC 8-09 tablet by ity of tablet 00:00: mouth [place] 00 daily. [facility] Branch pantoprazol Yes [id number] 40mg Take 1 Univers e 40 mg EC 8-09 tablet by ity of tablet 00:00: mouth [place] 00 daily. [facility] Branch pantoprazol Yes [id number] 40mg Take 1 Univers e 40 mg EC 8-09 tablet by ity of tablet 00:00: mouth [place] 00 daily. [facility] Branch pantoprazol Yes [id number] 40mg Take 1 Univers e 40 mg EC 8-09 tablet by ity of tablet 00:00: mouth [place] 00 daily. [facility] Branch pantoprazol Yes [id number] 40mg Take 1 Univers e 40 mg EC 8-09 tablet by ity of tablet 00:00: mouth [place] 00 daily. [facility] Branch pantoprazol Yes [id number] 40mg Take 1 Univers e 40 mg EC 8-09 tablet by ity of tablet 00:00: mouth [place] 00 daily. [facility] Branch pantoprazol Yes [id number] 40mg Take 1 Univers e 40 mg EC 8-09 tablet by ity of tablet 00:00: mouth [place] 00 daily. [facility] Branch pantoprazol Yes 40mg 40 mg, Univ ers e 808 Oral, ity of (PROTONIX) 20:45: DAILY, [place] EC tablet 00 First dose Medi jelly 40 mg on [place] Branch 09/21/18 at 1545, Until Discontinu ed, Routine docusate Yes 240mg 240 mg, Unive rs calcium 8-08 Oral, ity of (SURFAK) 14:00: DAILY, [place] capsule 240 00 First dose Me dical mg on [place] Branch 09/21/18 at 0900, Until Discontinu ed, Routine maalox:diph 2019-0 Yes 15mL 15 mL, Univ ers enhydrAMINE 09-21 Oral, ity of :lidocaine2 13:07: QDAILYPRN, [place] %viscous 08 Starting Medical 1:1:1: [facility] 09/21/18 Branch suspension at 0807, (COMPOUNDED Until ) Discontinu ed, Routine, epigastric pain ondansetron 2018-0 Yes 4mg 4 mg, Unive rs (ZOFRAN) 09-21 Oral, ity of tablet 4 mg 13:05: Q6HPRN, [place] as 52 Starting Medical [facility] 09/21/18 Branch at 0805, Until Discontinu ed, Routine, Nausea and Vomiting (N/V) meperidine 2019-0 Yes 50mg 50 mg, Unive rs (DEMEROL) 09-21 Intramuscu ity of injection 13:04: larHumera 50 mg 00 Q4HPRN, Medical Starting Branch [facility] 09/21/18 at 0804, Until Discontinu ed, Routine, Pain (scale 7-10)
E nter indication for use: [facility]
architecture faculty member approving Restricted medication : LARRY SABILLON proMETHazin 0 Yes 25mg 25 mg, Univ ers e 808 Intramuscu ity of (PHENERGAN) 13:03: lar, [place] injection 51 Q4HPRN, Medical 25 mg Starting Branch [facility] 09/21/18 at 0803, Until Discontinu ed, Routine, Nausea and Vomiting (N/V) ibuprofen 2019-0 Yes 600mg 600 mg, Univ ers (IBU) 09-21 Oral, ity of tablet 600 12:11: Q6HPRN, [place] mg 37 Starting Medical [facility] 09/21/18 Branch at 0711, Until Discontinu ed, Routine, Pain (scale 1-3), Pain (scale 4-6), Alternate with Tylenol for pain metroNIDAZO 2018-0 2019- No 500mg 500 mg, U migue OSCAR (FLAGYL) 09-21 08-08 Oral, BID, i ty of tablet 500 01:00: 13:07 First dose [place] mg 00 :56 on Tue Medical 09/20/18 at Branch 2000, Until Discontinu ed, Routine
Reason for Anti-Infec tive: Empiric Therapy for Suspected Infection< br>Empiric Therapy Site: Pelvic<br& gt;Duratio n of therapy: 7 days doxycycline 2019-0 Yes [id number] 100mg Take 1 Univers 100 mg 8-08 capsule by ity of capsule 00:00: mouth [place] (two) Medical times Branch daily. doxycycline 2019-0 Yes [id number] 100mg Take 1 Univers 100 mg 8-08 capsule by ity of capsule 00:00: mouth [place] (two) Medical times Branch daily. doxycycline 2019-0 Yes [id number] 100mg Take 1 Univers 100 mg 8-08 capsule by ity of capsule 00:00: mouth [place] Medical times Branch daily. doxycycline 2019-0 Yes [id number] 100mg Take 1 Univers 100 mg 8-08 capsule by ity of capsule 00:00: mouth [address] [place] [address] ([place]) Medical times [place] daily. doxycycline 2019-0 Yes [id number] 100mg Take 1 Univers 100 mg 8-08 capsule by ity of capsule 00:00: mouth [place] ([place] Medical times [place] daily. doxycycline 2019-0 Yes [id number] 100mg Take 1 Univers 100 mg 8-08 capsule by ity of capsule 00:00: mouth [place] ([place] Medical times [place] daily. doxycycline 2019-0 Yes [id number] 100mg Take 1 Univers 100 mg 8-08 capsule by ity of capsule 00:00: mouth [address] [place] [address] ([place]) Medical times [place] daily. doxycycline 2019-0 Yes [id number] 100mg Take 1 Univers 100 mg 8-08 capsule by ity of capsule 00:00: mouth [place] (two) Medical times Branch daily. doxycycline 2019-0 Yes [id number] 100mg Take 1 Univers 100 mg 8-08 capsule by ity of capsule 00:00: mouth [address] [place] [address] ([place]) Medical times [place] daily. doxycycline 2019-0 Yes [id number] 100mg Take 1 Univers 100 mg 8-08 capsule by ity of capsule 00:00: mouth [address] [place] [address] ([place] Medical times Branch daily. Polyethylen 2019-0 2019- No 17g 17 g, Univ ers e Glycol 09-20 Oral, ity of 3350 23:15: 23:06 ONCE, 1 [place] (MIRALAX) 00 :00 dose, Wed Medic al powder 17 g 09/20/18 at [facility] 1815, Routine doxycycline 2019-0 Yes 100mg 100 mg, Un trista (Vibramycin 09-20 Oral, ity of ) capsule 23:00: Q12HA2, [place] 100 mg 00 First dose Medical on Tue Branch 09/20/18 at 1800, Until Discontinu ed, JAQUI
Re ason for Anti-Infec tive: Empiric Therapy for Suspected Infection< br>Empiric Therapy Site: Pelvic<br& gt;Duratio n of therapy: 7 days simethicone 2019- Yes 80mg 80 mg, Univ ers (GAS 09-20 Oral, ity of RELIEF) 23:00: PC+HS, [place] chewable 00 First dose Medic al tablet 80 on Tue Branch mg 09/20/18 at 1800, Until Discontinu ed, Routine butalbital- 2018-0 Yes 1{tbl} 1 tablet, Univers acetaminoph 09-20 Oral, ity of en-caff 22:07: Q6HPRN, [place] (ESGIC) 11 Starting Medical 50-325-40 Tue09/20/18 Bran ch mg tablet 1 at 1707, tablet Until Discontinu ed, Routine, headache ibuprofen 2019- No 600mg 600 mg, Uni vers (IBU) 09-20 Oral, ity of tablet 600 17:15: 12:11 Q6HPRN, [place] mg 00 :46 Starting Medical 09/20/18 Branch at 1215, Until [place] 09/21/18 at 0711, Routine, Pain (scale 4-6), Alternate with Tylenol for pain HYDROcodone 2019- 2019- No 1{tbl} 1 tablet, Univers -acetaminop 09-20 Oral, ity of hen (NORCO 17:12: 05:57 Q6HPRN, [place] as 5) 5-325 mg 13 :54 Starting Medi jelly tablet 1 Tue09/20/18 Branc h tablet at 1212, Until [place] 09/21/18 at 0057, Routine, Pain (scale 7-10) ampicillin 2018- 2019- No 2g 2,000 mg Un trista (POLYCILLIN 09-20 (2 g), IV it y of -N) 2,000 14:30: 22:09 Piggyback, [place] mg in NaCl 00 :20 Q6H ABX, Medic al 0.9% (NS) First dose Bran ch 100 mL on Tue MINI-BAG 09/20/18 at 0930, Until Discontinu ed, 100 mL
R patricia for Anti-Infec tive: Empiric Therapy for Suspected Infection< br>Empiric Therapy Site: Other
O ther site: endometrio sis
Dur ation of therapy: 72 hours ampicillin 2019- No 2g 2,000 mg Un trista (POLYCILLIN 09-20 (2 g), IV it y of -N) 2,000 02:00: 12:12 [place], [place] mg in NaCl 00 :44 Q6H ABX, Medic al 0.9% (NS) First dose Bran ch 100 mL on Tue MINI-BAG 09/19/18 at 2100, Until Discontinu ed, 100 mL
R patricia for Anti-Infec tive: Empiric Therapy for Suspected Infection< br>Empiric Therapy Site: Other
O ther site: ??? endometrit is
Dura tion of therapy: 72 hours NaCl 0.9% 2019- No 30mL/kg at 999 Un trista (NS) bolus 8-06 08-06 mL/hr, ity of infusion 17:30: 17:09 1,824 mL [place] 1,824 mL 00 :00 (30 mL/kg Medica l ?60.8 kg), [place] IV Piggyback, ONCE, 1 dose, Tue09/19/18 at 1230, STAT lactobacill 2018-0 Yes 1{tbl} 1 tablet, [facility] 8-06 Oral, QID, ity of acidophilus 16:30: First dose [place] (ACIDOPHILL 00 on Tue Medica l US) 25 09/19/18 at Branch million 1130, cell -100 Until mg captab 1 Discontinu tablet ed, Routine NaCl 0.9% 0 Yes 1000mL at 125 Univ ers (NS) IV 8-06 mL/hr, IV ity of infusion 16:30: Infusion, [place] 1,000 mL 00 CONTINUOUS Medic al , Starting Branch e 09/19/18 at 1130, Until Discontinu ed, Routine gentamicin 2018- No 5mg/kg/ 250.4 mg Univers 250.4 mg in 09-19 08-07 d (rounded ity of NaCl 0.9% 13:30: 22:09 from 250.5 [place] (NS) 250 mL 00 :20 mg = 5 Medica l IV infusion mg/kg/day Bra nch ?50.1 kg [place] weight), IV Infusion, Q24H ABX, First dose on 09/19/18 at 0830, Until Discontinu ed, 250 mL
Reas on for Anti-Infec tive: Empiric Therapy for Suspected Infection< br>Empiric Therapy Site: Pelvic
Duration of therapy: 72 hours lactated 2018- No 1000mL at 20 Unive rs [place] IV 09-19 mL/hr, ity of infusion 13:30: 16:16 1,000 mL, [place] 1,000 mL 00 :27 IV Medical Infusion, Branch CONTINUOUS , Starting e 09/19/18 at 0830, Until Tue09/19/18 at 1116, Routine famotidine 2018- No 20mg 20 mg, Univ ers (PEPCID AC) 09-19 Oral, BID, i ty of tablet 20 13:00: 20:42 First dose [place] mg 00 :59 on [facility] 09/19/18 at Branch 0800, Until Discontinu ed, Routine clindamycin 2019- No 900mg 900 mg, IV Univers in 5 % 09-19 Piggyback, ity of dextrose 12:45: 22:09 Q8H ABX[place] (CLEOCIN) 00 :20 First dose Medi jelly 900 mg/50 on Tue Branch mL 09/19/18 at Piggyback 0745, 900 mg Until Discontinu ed, 50 mL
Reas on for Anti-Infec tive: Empiric Therapy for Suspected Infection< br>Empiric Therapy Site: Pelvic
Duration of therapy: 72 hours
F aculty member approving Restricted medication : CELIA COOMBS [facility] ibuprofen 2019- No 400mg 400 mg, Uni vers (IBU) 09-19 Oral, ity of tablet 400 08:22: 17:12 Q4HPRN, [place] as mg 14 :57 Starting Medical Tue09/19/18 Branch at 0322, Until Tue09/20/18 at 1212, Routine, Pain (scale 1-3), Temp > 38.5 C, Alternate with Tylenol for pain NaCl 0.9% 2019- No 1000mL at 125 Uni vers (NS) IV 09-19 mL/hr, IV ity of infusion 06:00: 16:16 Infusion, [place] as 1,000 mL 00 :27 CONTINUOUS Medic al , Starting Branch Tue09/19/18 at 0100, Until Tue09/19/18 at 1116, Routine FENTanyl PF 2019- No 75ug 75 mcg, Un trista (SUBLIMAZE 09-19 Slow IV ity o f (PF)) 06:00: 04:56 Push, [place] injection 00 :00 ONCE, 1 Medical 75 mcg dose, [facility] Branch 09/19/18 at 0100, STAT cefOXitin 2019- No 2g 2 g, IV Univ ers in 09-19 Piggyback, ity of dextrose, 06:00: 06:08 ONCE, 1 [place] iso-osm 00 :00 dose, [facility] (MEFOXIN) 2 09/19/18 at Bra nyh gram/50 mL 0, 50 DUPLEX BAG mL
Reas 2 g on for Anti-Infec tive: Documented Infection< br>Documen lucina Infection Site: Pelvic
Duration of Therapy: Other (see Comments) ondansetron Yes 4mg 4 mg, Slow Univers (ZOFRAN 09-19 IV Push, ity of (PF)) 05:59: Q6HPRN, [place] injection 4 24 Starting Medi jelly mg Tue09/19/18 Branch at 0059, Until Discontinu ed, Routine, Nausea and Vomiting (N/V) HYDROcodone 2019- No 1{tbl} 1 tablet, Univers -acetaminop 09-19 Oral, ity of hen (NORCO 05:58: 17:12 Q6HPRN, [place] as 5) 5-325 mg 54 :57 Starting Medi jelly tablet 1 Tue09/19/18 Branc h tablet at 0058, Until Tue09/20/18 at 1212, Routine, Pain (scale 4-6), Hold for SBP<110, DBP<60, RR<12, and/or drowsiness /sedation acetaminoph 2018- No 650mg 650 mg, U nivers en 09-19 Oral, ity of (TYLENOL) 05:58: 22:09 Q6HPRN, [place] tablet 650 44 :20 Starting Medic al mg Tue09/19/18 Branch at 0058, Until Tue09/20/18 at 1709, Routine, Pain (scale 1-3) FENTanyl PF 2018- No 50ug 50 mcg, Un trista (SUBLIMAZE 09-19 Slow IV ity o f (PF)) 04:45: 03:42 Push, [place] injection 00 :00 ONCE, 1 Medical 50 mcg dose, [facility] 09/18/18 at 2345, STAT morpHINE 2018- No 4mg 4 mg, Slow Un trista injection 4 09-19 IV Push, ity of mg 03:45: 02:38 ONCE, 1 [place] 00 :00 dose, Mon Medical 09/18/18 at Branch 2245, STAT iohexol 2018- No 99mL 99 mL, Univers (OMNIPAQUE 09-19 Intravenou it y of 350 03:00: 03:00 s, ONCE, 1 [place] BULK-100 00 :00 dose, Mon Medica l mL) 09/18/18 at [place] injection 2200, 99 mL Routine acetaminoph 2018- No 1000mg 1,000 mg, Univers en 09-19 Oral, ity of (TYLENOL) 02:15: 01:06 ONCE, 1 [place] tablet 00 :00 dose, Mon Medical 1,000 mg 09/18/18 at Branch 2115, JAQUI NaCl 0.9% 2019- No 1000mL at 999 Uni vers (NS) bolus 09-19 mL/hr, ity of infusion 01:30: 02:39 1,000 mL, [place] as 1,000 mL 00 :00 IV Medical Infusion, [place] ONCE, 1 dose, [facility] 8/5/19 at 2030, JAQUI traMADOL 50 2019-0 Yes [id number] 50mg Take 1 Univers mg tablet 3- [id number] tablet by ity of 00:00: mouth [place] 00 every 6 Medical (six) Branch hours as needed for Pain (scale 7-10). traMADOL 50 2019-0 Yes [id number] 50mg Take 1 Univers mg tablet 3- [id number] tablet by ity of 00:00: mouth [place] 00 every 6 Medical (six) Branch hours as needed for Pain (scale 7-10). traMADOL 50 2019-0 2019- No [id number] 50mg Take 1 Univers mg tablet 3 08- [id number] tablet by it y of 00:00: 00:00 mouth [place] 00 :00 every 6 Medical (six) Branch hours as needed for Pain (scale 7-10). phenazopyri 2017- Yes 200mg Take 1 Uni vers dine 200 mg 2-31 tablet by ity of tablet 00:00: mouth 3 [place] 00 (three) Medical times Branch daily. proMETHazin 2017- Yes 25mg Take 1 Univ ers e 25 mg 2-31 tablet by ity of tablet 00:00: mouth [place] 00 every 6 Medical (six) Branch hours as needed for Nausea and Vomiting (N/V). proMETHazin 2018- Yes 25mg Take 1 Univ ers e 25 mg 2-31 tablet by ity of tablet 00:00: mouth [place] 00 every 6 Medical (six) Branch hours as needed for Nausea and Vomiting (N/V). proMETHazin 2018- Yes 25mg Take 1 Univ ers e 25 mg 2-31 tablet by ity of tablet 00:00: mouth [place] 00 every 6 Medical (six) Branch hours as needed for Nausea and Vomiting (N/V). proMETHazin 2018-1 Yes 25mg Take 1 Univ ers e 25 mg 2-31 tablet by ity of tablet 00:00: mouth [place] 00 every 6 Medical (six) Branch hours as needed for Nausea and Vomiting (N/V). proMETHazin 2018-1 Yes 25mg Take 1 Univ ers e 25 mg 2-31 tablet by ity of tablet 00:00: mouth [place] 00 every 6 Medical (six) Branch hours as needed for Nausea and Vomiting (N/V). phenazopyri 2018-1 Yes 200mg Take 1 Uni vers dine 200 mg 2-31 tablet by ity of tablet 00:00: mouth 3 [place] 00 (three) Medical times Branch daily. proMETHazin 2017-02 Yes 25mg Take 1 Univ ers e 25 mg 2-31 tablet by ity of tablet 00:00: mouth [place] 00 every 6 Medical (six) Branch hours as needed for Nausea and Vomiting (N/V). proMETHazin 2017-02 Yes 25mg Take 1 Univ ers e 25 mg 2-31 tablet by ity of tablet 00:00: mouth [place] 00 every 6 Medical (six) Branch hours as needed for Nausea and Vomiting (N/V). proMETHazin 2017-02 Yes 25mg Take 1 Univ ers e 25 mg 2-31 tablet by ity of tablet 00:00: mouth [place] 00 every 6 Medical (six) Branch hours as needed for Nausea and Vomiting (N/V). proMETHazin 2017-02 Yes 25mg Take 1 Univ ers e 25 mg 2-31 tablet by ity of tablet 00:00: mouth [place] 00 every 6 Medical (six) Branch hours as needed for Nausea and Vomiting (N/V). proMETHazin 2017-02 Yes 25mg Take 1 Univ ers e 25 mg 2-31 tablet by ity of tablet 00:00: mouth [place] 00 every 6 Medical (six) Branch hours as needed for Nausea and Vomiting (N/V). proMETHazin 2017-02 Yes 25mg Take 1 Univ ers e 25 mg 2-31 tablet by ity of tablet 00:00: mouth [place] 00 every 6 Medical (six) Branch hours as needed for Nausea and Vomiting (N/V). proMETHazin 2017-02 Yes 25mg Take 1 Univ ers e 25 mg 2-31 tablet by ity of tablet 00:00: mouth [place] 00 every 6 Medical (six) Branch hours as needed for Nausea and Vomiting (N/V). phenazopyri 2017-02 2019- No 200mg Take 1 Un trista dine 200 mg 2-31 08-08 tablet by it y of tablet 00:00: 00:00 mouth 3 [place] 00 :00 (three) Medical times Branch daily. ibuprofen 2018-0 Yes 600mg Take 1 Unive rs 600 mg 7-03 tablet by ity of tablet 00:00: mouth [place] 00 every 6 Medical (six) Branch hours as needed for Pain (scale 4-6). ibuprofen 2018-0 Yes 600mg Take 1 Unive rs 600 mg 7-03 tablet by ity of tablet 00:00: mouth [place] 00 every 6 Medical (six) Branch hours as needed for Pain (scale 4-6). ibuprofen 2018-0 Yes 600mg Take 1 Unive rs 600 mg 7-03 tablet by ity of tablet 00:00: mouth [place] 00 every 6 Medical (six) Branch hours as needed for Pain (scale 4-6). ibuprofen 2018-0 Yes 600mg Take 1 Unive rs 600 mg 7-03 tablet by ity of tablet 00:00: mouth [place] 00 every 6 Medical (six) Branch hours as needed for Pain (scale 4-6). ibuprofen 2018-0 Yes 600mg Take 1 Unive rs 600 mg 7-03 tablet by ity of tablet 00:00: mouth [place] 00 every 6 Medical (six) Branch hours as needed for Pain (scale 4-6). ibuprofen 2018-0 Yes 600mg Take 1 Unive rs 600 mg 7-03 tablet by ity of tablet 00:00: mouth [place] 00 every 6 Medical (six) Branch hours as needed for Pain (scale 4-6). ibuprofen 2018-0 Yes 600mg Take 1 Unive rs 600 mg 7-03 tablet by ity of tablet 00:00: mouth [place] 00 every 6 Medical (six) Branch hours as needed for Pain (scale 4-6). ibuprofen 2018-0 Yes 600mg Take 1 Unive rs 600 mg 7-03 tablet by ity of tablet 00:00: mouth [place] 00 every 6 Medical (six) Branch hours as needed for Pain (scale 4-6). ibuprofen 2018-0 Yes 600mg Take 1 Unive rs 600 mg 7-03 tablet by ity of tablet 00:00: mouth [place] 00 every 6 Medical (six) Branch hours as needed for Pain (scale 4-6). ibuprofen 2018-0 Yes 600mg Take 1 Unive rs 600 mg 7-03 tablet by ity of tablet 00:00: mouth [place] 00 every 6 Medical (six) Branch hours as needed for Pain (scale 4-6). ibuprofen 2018-0 Yes 600mg Take 1 Unive rs 600 mg 7-03 tablet by ity of tablet 00:00: mouth [place] 00 every 6 Medical (six) Branch hours as needed for Pain (scale 4-6). ibuprofen 2018-0 Yes 600mg Take 1 Unive rs 600 mg 7-03 tablet by ity of tablet 00:00: mouth [place] 00 every 6 Medical (six) Branch hours as needed for Pain (scale 4-6). VITAFOL Yes TK ONE [place] Univer s ULTRA 29 mg 7-06 PO ONCE A ity of iron- 1 00:00: DAY [place] mg-200 mg 00 Medical Cap Branch VITAFOL Yes TK ONE C Univer s ULTRA 29 mg 7-06 PO ONCE A ity of iron- 1 00:00: DAY [place] mg-200 mg 00 Medical Cap Branch VITAFOL 2019- No TK ONE [place] Unive rs ULTRA 29 mg 7-06 08-08 PO ONCE A it y of iron- 1 00:00: 00:00 DAY [place] mg-200 mg 00 :00 [facility] Branch Immunizations Ordered Immunization Filled Immunization Date Status Commen ts Source Name Name Meningococcal 2015-06-03 Completed University of Polysaccharide 00:00:00 [facility] jelly (groups A, C, Y and Branc h W-135) conjugate vaccine (MCV4P) Meningococcal 2015-06-03 Completed University of Polysaccharide 00:00:00 [facility] jelly (groups A, C, Y and Branc h W-135) conjugate vaccine (MCV4P) Meningococcal 2015-06-03 Completed University of Polysaccharide 00:00:00 [facility] jelly (groups A, C, Y and Branc h W-135) conjugate vaccine (MCV4P) HEPATITIS A 2011-09-30 Completed University of 00:00:00 [facility] TDAP 2011-09-30 Completed University of 00:00:00 [facility] Varicella 2011-09-30 Completed University of (varivax)(chicken 00:00:00 [facility] [place] [facility] edical pox) Branch HEPATITIS A 2011-09-30 Completed University of 00:00:00 [facility] TDAP 2011-09-30 Completed University of 00:00:00 [facility] Varicella 2011-09-30 Completed University of (varivax)(chicken 00:00:00 [facility] [place] [facility] edical pox) Branch HEPATITIS A 2011-09-30 Completed University of 00:00:00 [facility] TDAP 2011-09-30 Completed University of 00:00:00 [facility] Varicella 2011-09-30 Completed University of (varivax)(chicken 00:00:00 [facility] [place] [facility] edical pox) Branch Meningococcal 2010-01-26 Completed University of Polysaccharide 00:00:00 [facility] jelly (groups A, C, Y and Branc h W-135) conjugate vaccine (MCV4P) TDAP 2010-01-26 Completed University of 00:00:00 [facility] Meningococcal 2010-01-26 Completed University of Polysaccharide 00:00:00 [facility] jelly (groups A, C, Y and Branc h W-135) conjugate vaccine (MCV4P) TDAP 2010-01-26 Completed University of 00:00:00 [facility] Meningococcal 2010-01-26 Completed University of Polysaccharide 00:00:00 [facility] jelly (groups A, C, Y and Branc h W-135) conjugate vaccine (MCV4P) TDAP 2010-01-26 Completed University of 00:00:00 [facility] DTAP 1999 Completed University of 00:00:00 [facility] HIB 3 Dose Schedule 1999 Completed Unive rsity of 00:00:00 [facility] Hep B, Adol or Pedi 1999 Completed Unive rsity of Dosage 00:00:00 [facility] DTAP 1999 Completed University of 00:00:00 [facility] HIB 3 Dose Schedule 1999 Completed Unive rsity of 00:00:00 [facility] Hep B, Adol or Pedi 1999 Completed Unive rsity of Dosage 00:00:00 [facility] DTAP 1999 Completed University of 00:00:00 [facility] HIB 3 Dose Schedule 1999 Completed Unive rsity of 00:00:00 [facility] Hep B, Adol or Pedi 1999 Completed Unive rsity of Dosage 00:00:00 [facility] DTAP 1999 Completed University of 00:00:00 [facility] HIB 3 Dose Schedule 1999 Completed Unive rsity of 00:00:00 [facility] Hep B, Adol or Pedi 1999 Completed Unive rsity of Dosage 00:00:00 [facility] Polio (IPV/OPV) 1999 Completed Universit y of 00:00:00 [facility] DTAP 1999 Completed University of 00:00:00 [facility] HIB 3 Dose Schedule 1999 Completed Unive rsity of 00:00:00 [facility] Hep B, Adol or Pedi 1999 Completed Unive rsity of Dosage 00:00:00 [facility] Polio (IPV/OPV) 1999 Completed Universit y of 00:00:00 [facility] DTAP 1999 Completed University of 00:00:00 [facility] HIB 3 Dose Schedule 1999 Completed Unive rsity of 00:00:00 [facility] Hep B, Adol or Pedi 1999 Completed Unive rsity of Dosage 00:00:00 [facility] Polio (IPV/OPV) 1999 Completed Universit y of 00:00:00 [facility] DTAP 1999 Completed University of 00:00:00 [facility] HIB 3 Dose Schedule 1999 Completed Unive rsity of 00:00:00 [facility] Polio (IPV/OPV) 1999 Completed Universit y of 00:00:00 [facility] DTAP 1999 Completed University of 00:00:00 [facility] HIB 3 Dose Schedule 1999 Completed Unive rsity of 00:00:00 [facility] Polio (IPV/OPV) 1999 Completed Universit y of 00:00:00 [facility] DTAP 1999 Completed University of 00:00:00 [facility] HIB 3 Dose Schedule 1999 Completed Unive rsity of 00:00:00 [facility] Polio (IPV/OPV) 1999 Completed Universit y of 00:00:00 [facility] Vital Signs Vital Name Observation Time Observation Value Comments Source Systolic blood 2021-07-22 20:00:00 107 mm[Hg] Univer sity of pressure [facility] Diastolic blood 2021-07-22 20:00:00 72 mm[Hg] Unive rsity of pressure [facility] Heart rate 2021-07-22 20:00:00 72 /min Universi ty of [facility] Respiratory rate 2021-07-22 20:00:00 18 /min Univ ersity of [facility] Oxygen saturation in 2021-07-22 20:00:00 100 /min [facility] Arterial blood by [facility] Pulse oximetry Branch Body temperature 2021-07-22 16:49:00 37.89 Manjula Univ [facility] [place] [facility] Body height 2021-07-22 14:56:00 157.5 cm [facility] [place] [facility] Body weight 2021-07-22 14:56:00 77.111 kg [facility] [place] [facility] BMI 2021-07-22 14:56:00 31.09 kg/m2 [facility] [place] [facility] Systolic blood 2020-02-03 17:50:00 110 mm[Hg] Univer sity of pressure [place] [facility] Diastolic blood 2020-02-03 17:50:00 70 mm[Hg] Unive rsity of pressure [place] [facility] Heart rate 2020-02-03 17:50:00 71 /min [facility] [place] [facility] Respiratory rate 2020-02-03 17:50:00 18 /min Univ ersity [facility] [place] [facility] Oxygen saturation in 2020-02-03 17:50:00 100 /min University of Arterial blood by [place] [facility] jelly Pulse oximetry Branch Body temperature 2020-02-03 15:20:00 37 Manjula [facility] [place] [facility] Body weight 2020-02-03 15:20:00 72.576 kg Universi ty [facility] [place] [facility] Systolic blood 2020-02-03 17:50:00 110 mm[Hg] Univer sity of pressure [place] [facility] Diastolic blood 2020-02-03 17:50:00 70 mm[Hg] Unive rsity of pressure [place] [facility] Heart rate 2020-02-03 17:50:00 71 /min [facility]i [facility] [place] [facility] Respiratory rate 2020-02-03 17:50:00 18 /min Univ ersity [facility] [place] [facility] Oxygen saturation in 2020-02-03 17:50:00 100 /min University of Arterial blood by [place] [facility] jelly Pulse oximetry Branch Body temperature 2020-02-03 15:20:00 37 Manjula [facility] [place] [facility] Body weight 2020-02-03 15:20:00 72.576 kg [facility]i [facility] [place] [facility] Body temperature 2019-05-03 23:45:00 37.78 Manjula [facility] [place] [facility] Systolic blood 2019-05-03 22:48:00 117 mm[Hg] Univer sity of pressure [place] [facility] Diastolic blood 2019-05-03 22:48:00 75 mm[Hg] Unive rsity of pressure [place] [facility] Heart rate 2019-05-03 22:48:00 102 /min [facility] [place] [facility] Respiratory rate 2019-05-03 22:48:00 18 /min [facility] [place] [facility] Body height 2019-05-03 22:48:00 170.2 cm [facility] [place] [facility] Body weight 2019-05-03 22:48:00 72.576 kg [facility] [place] [facility] BMI 2019-05-03 22:48:00 25.06 kg/m2 [facility] [place] [facility] Oxygen saturation in 2019-05-03 22:48:00 97 /min University of Arterial blood by [facility] jelly Pulse oximetry Branch Body temperature 2019-05-03 23:45:00 37.78 Manjula [facility] [place] [facility] Systolic blood 2019-05-03 22:48:00 117 mm[Hg] Univer sity of pressure [place] [facility] Diastolic blood 2019-05-03 22:48:00 75 mm[Hg] Unive rsity of pressure [place] [facility] Heart rate 2019-05-03 22:48:00 102 /min [facility]i [facility] [place] [facility] Respiratory rate 2019-05-03 22:48:00 18 /min Univ [facility] [place] [facility] Body height 2019-05-03 22:48:00 170.2 cm [facility] [place] [facility] Body weight 2019-05-03 22:48:00 72.576 kg [facility] [place] [facility] BMI 2019-05-03 22:48:00 25.06 kg/m2 [facility] [place] [facility] Oxygen saturation in 2019-05-03 22:48:00 97 /min University of Arterial blood by [facility] jelly Pulse oximetry Branch Systolic blood 2019-04-29 01:05:00 114 mm[Hg] Univer sity of pressure [place] [facility] Diastolic blood 2019-04-29 01:05:00 73 mm[Hg] Unive rsity of pressure [place] [facility] Heart rate 2019-04-29 01:05:00 82 /min [facility] [place] [facility] Body temperature 2019-04-29 01:05:00 37.17 Manjula [facility] [place] [facility] Respiratory rate 2019-04-29 01:05:00 20 /min Univ [facility] [place] [facility] Body height 2019-04-29 01:05:00 157.5 cm [facility] [place] [facility] Body weight 2019-04-29 01:05:00 72.576 kg [facility] [place] [facility] BMI 2019-04-29 01:05:00 29.26 kg/m2 [facility] [place] [facility] Oxygen saturation in 2019-04-29 01:05:00 100 /min University of Arterial blood by [facility] Pulse oximetry Branch Systolic blood 2019-04-29 01:05:00 114 mm[Hg] Univer sity of pressure [place] [facility] Diastolic blood 2019-04-29 01:05:00 73 mm[Hg] Unive rsity of pressure [place] [facility] Heart rate 2019-04-29 01:05:00 82 /min [facility] [place] [facility] Body temperature 2019-04-29 01:05:00 37.17 Manjula [facility] [place] [facility] Respiratory rate 2019-04-29 01:05:00 20 /min [facility] [place] [facility] Body height 2019-04-29 01:05:00 157.5 cm [facility] [place] [facility] Body weight 2019-04-29 01:05:00 72.576 kg [facility] [place] [facility] BMI 2019-04-29 01:05:00 29.26 kg/m2 [facility] [place] [facility] Oxygen saturation in 2019-04-29 01:05:00 100 /min University of Arterial blood by [facility] Pulse oximetry Branch Systolic blood 2018-09-21 21:28:00 123 mm[Hg] Univer sity of pressure [place] [facility] Diastolic blood 2018-09-21 21:28:00 89 mm[Hg] Unive rsity of pressure [place] [facility] Heart rate 2018-09-21 21:28:00 76 /min [facility] [place] [facility] Body temperature 2018-09-21 21:28:00 36.83 Manjula [facility] [place] [facility] Respiratory rate 2018-09-21 21:28:00 18 /min Univ [facility] [place] [facility] Oxygen saturation in 2018-09-21 21:28:00 98 /min University of Arterial blood by [facility] Pulse oximetry Branch Body height 2018-09-19 01:01:00 157.5 cm [facility] [place] [facility] Body weight 2018-09-19 01:01:00 60.782 kg [facility] [place] [facility] BMI 2018-09-19 01:01:00 24.51 kg/m2 [facility] Systolic blood 2018-09-21 21:28:00 123 mm[Hg] Univer sity of pressure [facility] Diastolic blood 2018-09-21 21:28:00 89 mm[Hg] Unive rsity of pressure [facility] Heart rate 2018-09-21 21:28:00 76 /min [facility] Body temperature 2018-09-21 21:28:00 36.83 Manjula [facility] Respiratory rate 2018-09-21 21:28:00 18 /min [facility] Oxygen saturation in 2018-09-21 21:28:00 98 /min [facility] Arterial blood by [facility] Pulse oximetry [place] Body height 2018-09-19 01:01:00 157.5 cm [facility] Body weight 2018-09-19 01:01:00 60.782 kg [facility] BMI 2018-09-19 01:01:00 24.51 kg/m2 [facility] Procedures Procedure Date / Time Performing Clinician Source Performed CT ABDOMEN PELVIS WO 2021-07-22 17:14:41 Ramone Lopez [facility] POCT TEST 2021-07-22 16:47:00 Ramone Lopez [facility] URINALYSIS 2021-07-22 16:46:00 Ramone Lopez [facility] LIPASE 2021-07-22 16:06:00 [facility] COMP. METABOLIC PANEL 2021-07-22 16:06:00 Ramone Lopez [facility] ([id number]) [facility] CBC WITH DIFF 2021-07-22 16:06:00 [facility] RAPID INFLUENZA A/B 2021-07-22 15:10:00 Ramone Lopez [facility] COVID-19 (ID NOW RAPID 2021-07-22 15:10:00 [facility] CONSENT/REFUSAL FOR 2021-07-22 14:46:58 Doctor Unassigned, [facility] [place] [facility] Name Medical Branch [id number] 2020-08-19 00:00:00 IVETTE Hayes [facility] [id number] 2020-08-19 00:00:00 IVETTE Hayes [facility] [id number] 2020-08-19 00:00:00 IVETTE WATTS [facility] US FIRST 2020-02-03 17:12:51 Christian Moreno [facility] TRIMESTER LESS THAN 14 Medical B [place] WEEKS WITH TRANSVAGINAL US GALL BLADDER 2020-02-03 17:12:22 Christian Moreno [facility] LIPASE 2020-02-03 15:27:00 Josh Christian [facility] COMP. METABOLIC PANEL 2020-02-03 15:27:[address] [facility] ([id number]) [facility] TOTAL BETA HCG ASSAY 2020-02-03 15:27:00 Christian Moreno [facility] CBC WITH DIFF 2020-02-03 15:27:00 Josh Christian [facility] URINALYSIS 2020-02-03 15:27:00 Josh Christian [facility] POCT TEST 2020-02-03 15:26:00 Christian Moreno [facility] NOTICE OF PRIVACY 2020-02-03 15:13:36 Doctor Unassigned, No [facility] CONSENT/REFUSAL FOR 2020-02-03 15:10:48 Doctor Unassigned, No [facility] [place] DIAGNOSIS [facility] TREATMENT Name [facility] RAPID STREP SCREEN FOR 2019-05-03 22:51:00 Meg Kearney [facility] [place] GROUP A [facility] ADC,CLC OR LCC ONLY - 2019-05-03 22:51:00 Meg [facility] [place] INFLUENZA A & B DIRECT [facility] ANTIGEN NOTICE OF PRIVACY 2019-05-03 22:36:44 Doctor Unassigned, No [facility] [place] PRACTICES [facility] ED LACERATION REPAIR 2019-04-29 02:34:00 Jolene Elias [facility] XR HAND <3 VW RIGHT 2019-04-29 01:39:10 Niall Flores [facility] CONSENT/REFUSAL FOR 2019-04-29 00:52:52 Doctor [facility]igned, [facility] Branch EGD (ENDO) 2018-09-21 20:17:05 Celia Coombs [facility] US ABDOMEN COMPLETE 2018-09-21 14:07:56 Celia Coombs [facility] CBC WITH DIFFERENTIAL 2018-09-20 15:51:00 [facility] MAGNESIUM 2018-09-20 14:14:00 L[facility]pez [facility] COMP. METABOLIC PANEL 2018-09-20 14:14:00 López [facility] ([id number]) [facility] US PELVIS COMPLETE NON-OB 2018-09-19 14:17:18 Celia Coombs [facility] URINE CULTURE 2018-09-19 13:54:52 Celia Coombs [facility] SURGICAL PATHOLOGY EXAM 2018-09-19 13:53:00 Celia Coombs [facility] DILATION AND CURETTAGE 2018-09-19 13:09:00 Celia Comobs [facility] US TRANSVAGINAL 2018-09-19 04:21:10 Christian Moreno [facility] LACTIC ACID WHOLE BLOOD 2018-09-19 03:49:00 Christian Moreno [facility] GC & CHLAMYDIA AMPLIFIED 2018-09-19 03:47:00 Christian Moreno [facility] TRICHOMONAS AMPLIFIED 2018-09-19 03:47:00 Christian Moreno [facility] XR CHEST 1 VW 2018-09-19 03:41:03 Christian Moreno [facility] BLOOD CULTURE SCREEN 2018-09-19 03:31:00 Christian Moreno [facility] BLOOD CULTURE SCREEN 2018-09-19 03:29:00 Christian Moreno [facility] CT ABDOMEN PELVIS W 2018-09-19 02:52:01 Christian Moreno [facility] URINE CULTURE 2018-09-19 02:33:00 Christian Moreno [facility] URINALYSIS 2018-09-19 01:37:00 Christian Moreno [place] [facility] THROAT CULTURE 2018-09-19 01:37:00 Christian Moreno [facility] RAPID STREP SCREEN FOR 2018-09-19 01:37:00 Christian Moreno [facility] GROUP A [facility] ADC,CLC OR LCC ONLY - 2018-09-19 01:37:[address] [facility] INFLUENZA A & B DIRECT [facility] ANTIGEN POCT TEST 2018-09-19 01:37:00 Christian Moreno [facility] LIPASE 2018-09-19 01:36:00 Christian Moreno [facility] HEPATIC FUNCTION PANEL 2018-09-19 01:36:00 Christian Moreno [facility] ([id number]) (ALB,T.PRO,BILI Medical [place] T,BU/BC,ALT,AST,ALK PHOS) BASIC METABOLIC PANEL 2018-09-19 01:36:[address] [facility] (NA, K, CL, CO2, GLUCOSE, Medica l Branch BUN, CREATININE, CA) CBC WITH DIFFERENTIAL 2018-09-19 01:36:00 Christian Moreno [facility] PROTHROMBIN TIME / INR 2018-09-19 01:36:00 Christian Moreno [facility] ACTIVATED PARTIAL 2018-09-19 01:36:[address] [facility] THRMPLAS [facility] EBV-MONONUCLEOSIS SCREEN 2018-09-19 01:36:00 Christian Moreno [facility] CONSENT/REFUSAL FOR 2018-09-19 00:53:57 Doctor Unassigned, No [facility] DIAGNOSIS AND TREATMENT Name Medical Branch AGREEMENTS AUTHORIZATIONS 2018-09-18 05:01:00 Doctor Unassigned, No [facility] AND IRREVOCABLE Name [facility] ASSIGNMENTS (FORM 2000) Encounters Start End Encounter Admission Attending Care Care Encounter Source Date/Time Date/Time Type Type Clinicians Facility Department ID 2020-12-13 Emergency [facility] [id number] [facility]11 Emergency [facility] [id number] Univers 15:14:[address] [facility] 2021-07-22 2021-07-22 Emergency X RIDDLE, [facility] ERT [id number] Univers 09:58:00 15:17:00 CHRISTOPHER it y of [facility] 2021-07-22 2021-07-22 Emergency Norris, [facility] [id number] Univers 09:58:00 15:17:00 Ramone DORAN [id number] ity of [place] 4.2.7.2.686 [facility] [id number] [facility] 084 Branch 2021-07-22 2021-07-22 Orders Doctor [place] [id number] Univers 00:00:00 00:00:00 Only Unassigned, JAILENE [id number] ity of [facility] 4.2.7.2.686 [facility] [phone] [facility] 009 Branch 2020-08-19 2020-08-21 Inpatient EL Berry, HCACL OBPP [id number] [facility] 11:52:00 15:33:00 Mary Jo [id number] [facility] 2020-08-19 2020-08-21 Inpatient EL Berry, HCACL OBPP [id number] [facility] 11:52:00 15:33:00 Mary Jo 85 [facility] 2020-08-17 2020-08-17 Emergency EM Ty, [facility]ACL MACK [id number] [facility] 02:32:00 05:00:00 Analiza [id number] [facility] 2020-08-12 2020-08-12 Emergency EM Ty, HCACL MACK [id number] [facility] 18:07:00 19:13:00 Analiza [id number] [facility] 2020-08-01 2020-08-01 Emergency EL Jemal HCACL MACK [id number] [facility] 09:12:00 11:33:00 Shruthi, [id number] Freddy Madhavi [facility] 2020-07-02 2020-07-02 Case Stef Langeangella [id number] 00:00:00 00:00:00 Management Allie R Snyder [id number] [place] 4.2.7.2.686 [id number] 086 2020-07-02 2020-07-02 Hao Ledbetter 1.2.840.114 [id number] Univers 00:00:00 00:00:00 Management Allie Sandovaly [id number] [place] [id number] [address] 2020-02-11 2020-02-11 Outpatient R EDI [facility] [id number] Univers 09:00:00 09:00:00 TOM ity o f [facility] 2020-02-11 2020-02-11 Outpatient R [facility] [id number] Univers 08:30:00 08:30:00 [id number] ity of [facility] 2020-02-03 2020-02-03 [facility] [id number] Univers 09:18:00 12:13:00 Christian Doran [id number] i [place] [id number] [address] 2020-02-03 2020-02-03 [facility] [id number] 09:18:00 12:13:00 Christian Doran [id number] [place] 4.2.7.2.686 [place] [id number] [facility] 2020-02-03 2020-02-03 Orders Doctor GARIBAY 1.2.840.114 [id number] Univers 00:00:00 00:00:00 Only Unassigned, JAILENE [id number] ity of [facility] 4.2.7.2.686 [place] [id number] [address] 2020-02-03 2020-02-03 Orders Doctor GARIBAY 1.2.840.114 [id number] 00:00:00 00:00:00 Only Unassigned, JAILENE 350.1.13.10 [facility] 4.2.7.2.686 [id number] 009 2019-05-06 2019-05-06 Telemedici Silva [facility] 1.2.840.114 [id number] Univers 19:22:57 19:37:57 ne Visit [place] SPECIALTY [id number] ity of CARE 4.2.7.2.686 [facility] CENTER AT [phone] Mi dical MAYELA Kearney [facility] 2019-05-06 2019-05-06 [facility] 1.2.840.114 [id number] 19:22:57 19:37:57 ne Visit [facility] SPECIALTY [id number] CARE 4.2.7.2.686 CENTER AT [phone] MAYELA [address] [place] [address] 2019-05-06 2019-05-06 Outpatient R [facility] [id number] Univers 19:00:00 19:00:00 [id number] ity [facility] 2019-05-06 2019-05-06 Outpatient R [facility] [id number] Univers 19:00:00 19:00:00 ity [facility] 2019-05-03 2019-05-03 Emergency [facility] 1.2.840.114 [id number] Univers 17:52:28 19:26:00 Meg Doran 350.1.13.10 ity of [place] 4.2.7.2.686 [facility] [phone] [address] 2019-05-03 2019-05-03 Emergency [facility] 1.2.840.114 [id number] 17:52:28 19:26:00 Meg Doran 350.1.13.10 [place] [address] [place] [address] [id number] [facility] 2019-04-28 2019-04-28 Emergency [facility] 1.2.840.114 [id number] Univers 20:50:16 22:01:00 Jolene Doran 350.1.13.10 ity of [place] 4.2.7.2.686 [facility] [id number] [address] 2019-04-28 2019-04-28 [facility] [id number] Univers 20:50:16 22:01:00 JOLENE ittrenton [facility] 2019-04-28 2019-04-28 Emergency Chamirian, [facility] 1.2.840.114 [id number] 20:50:16 22:01:00 Jolene Doran 350.1.13.10 [place] 4.2.7.2.686 [place] [phone] [facility] 2018-09-22 2018-09-22 Telephone Ac [facility] 1.2.840.114 [id number] [facility] 00:00:00 00:00:00 Larry Doran 350.1.13.10 i [place] [phone] Mi dical [address] 2018-09-22 2018-09-22 Telephone Ac [facility] 1.2.840.114 [id number] 00:00:00 00:00:00 Larry Doran 350.1.13.10 [place] 4.2.7.2.686 Professio [id number] [address] 2018-09-18 2018-09-21 [facility] 1.2.840.1 [id number] 20:03:25 18:40:00 Encounter Amber [place] on 350.1.13.10 Celia Coombs [place] [address] [place] [address] [id number] [facility] 2018-09-18 2018-09-21 [facility] 1.2.840.1 [id number] [facility] 20:03:25 18:40:00 Encounter Amber [place] on 350.1.13.10 ity of [place] 4.2.7.2.686 [facility] [id number] [address] 2018-09-21 2018-09-21 Telephone Celia Coombs [facility] 1.2.840.114 [id number] 00:00:00 00:00:00 Live [place] 350.1.13.10 [place] 4.2.7.2.686 Professio [id number] [address] 2018-09-21 2018-09-21 Telephone Celia Coombs [facility] 1.2.840.114 [id number] Univers 00:00:00 00:00:00 Live [place] 350.1.13.10 i ty of [place] 4.2.7.2.686 Mireya Badillo [phone] Mi dical nal [address] [facility] 2018-06-18 2018-06-18 Emergency E [facility] [address] [facility] 19:39:00 19:39:00 Results Test Description Test Time Test Comments Results Result Comments Source COMP. METABOLIC PANEL (56518) 2021-07-22 16:47:27 Test Item Value Reference Range Interpretation Comme nts NA (test code = 5251046622) 135 mmol/L 135-145 K (test code = 3303101978) 3.6 mmol/L 3.5-5.0 CL (test code = 4541702756) 101 mmol/L 98-108 CO2 TOTAL (test code = 9539078047) 20 mmol/L 23-31 L AGAP (test code = 8482311905) 2-16 BUN (test code = 3606543469) 11 mg/dL 7-23 GLUCOSE (test code = 8602451703) 102 mg/dL 70-110 CREATININE (test code = 0.44 mg/dL 0.50-1.04 L 9912608658) TOTAL BILI (test code = 0.6 mg/dL 0.1-1.6 6684111613) CALCIUM (test code = 9990158115) 8.9 mg/dL 8.6-10.6 T PROTEIN (test code = 1569068871) 7.4 g/dL 6.3-8.2 ALBUMIN (test code = 8406984991) 4.3 g/dL 3.5-5.0 ALK PHOS (test code = 1518241874) 92 U/L 34-122 ALTv (test code = 1742-6) 15 U/L 5-35 AST(SGOT) (test code = 1910432854) 22 U/L 13-40 eGFR (test code = 5170795740) mL/min/1.73m2 MONISHA (test code = MONISHA) Association of Glomerular Filtration Rate (GFR) and Staging of Kidney Disease* + +-------- + ------+| GFR (mL/min/1.73 m2) ?| With Kidney Damage ?| ?Without Kidney Damage+ +-- + +| ?>90 ?| ?Stage one ?| ? Normal ?+ +------- + -------+| ?60-89 ?| ?Stage two ?| ? Decreased GFR ? + +-------- + ------+| ?30-59 ?| ?Stage three ?| ? Stage three ? + +-------- + ------+| ?15-29 ?| ?Stage four ? | ? Stage four ?+ +------- + -------+| ?<15 (or dialysis) ? ?| ?Stage five ? | ? Stage five ?+ +------- + -------+ *Each stage assumes the associated GFR level has been in effect for at least three months. ?Stages 1 to 5, with or without kidney disease, indicate chronic kidney disease. Notes: Determination of stages one and two (with eGFR >59mL/min/1.73 m2) requires estimation of kidney damage for at least three months as defined by structural or functional abnormalities of the kidney, manifested by either:Pathological abnormalities or Markers of kidney damage (including abnormalities in the composition of the blood or urine or abnormalities in imaging tests). Lab Interpretation (test code = Abnormal 04095-0) [facility] [id number] 16:47:00 Test Item Value Reference Range Interpretation Comments POCT PREG (test code = 1605) negative On board controls acceptable with present C Line (test code = 3574) POCT PREG LOT # (test code = 3575) [id number] POCT PREG TEST DATE (test 12-14-2022 code = 3576) Lab Interpretation (test code = Normal 69149-8) [facility] 16:44:29 Test Item Value Reference Range Interpretation Comments LIPASE (test code = 2000455271) 35 U/L 0-220 Lab Interpretation (test code = Normal 29708-9) [facility] WITH [id number] 16:19:04 Test Item Value Reference Range Interpretation Comments WBC (test code = See_Comment [Automated 6290-2) message] The sy stem which generated this result transmitted reference range : 4.30 - 11.10 10*3/?L. The reference range was not used to interpret this result as normal/abnormal . RBC (test code = See_Comment [Automated 789-8) message] The sy stem which generated this result transmitted reference range : 3.93 - 5.25 10*6/?L. The reference range was not used to interpret this result as normal/abnormal . HGB (test code = 11.8 g/dL 11.6-15.0 718-7) HCT (test code = 36.0 % 35.7-45.2 4544-3) MCV (test code = 77.3 fL 80.6-95.5 L 787-2) MCH (test code = 25.3 pg 25.9-32.8 L 785-6) MCHC (test code = 32.8 g/dL 31.6-35.1 786-4) RDW-SD (test code = 41.1 fL 39.0-49.9 33856-7) RDW-CV (test code = 14.7 % 12.0-15.5 788-0) PLT (test code = See_Comment [Automated 777-3) message] The sy stem which generated this result transmitted reference range : 166 - 358 10*3/ ?L. The reference r boogie was not used to interpret this result as normal/abnormal . MPV (test code = 11.1 fL 9.5-12.9 70538-7) NRBC/100 WBC (test See_Comment [Automat ed code = 7585247584) message] The system which generated this result transmitted reference range : 0.0 - 10.0 /100 WBCs. The refer ence range was not u sed to interpret th is result as normal/abnormal . NRBC x10^3 (test code <0.01 See_Comment [Auto mated = 2645696312) message] The s ystem which generated this result transmitted reference range : 10*3/?L. The reference range was not used to interpret this result as normal/abnormal . GRAN MAT (NEUT) % 83.6 % (test code = 770-8) IMM GRAN % (test code 0.60 % = 6663804633) LYMPH % (test code = 8.1 % 736-9) MONO % (test code = 7.6 % 5905-5) EOS % (test code = 0.0 % 713-8) BASO % (test code = 0.1 % 706-2) GRAN MAT x10^3(ANC) 7.57 10*3/uL 1.88-7.09 H (test code = 3632995513) IMM GRAN x10^3 (test 0.05 10*3/uL 0.00-0.06 code = 6689410660) LYMPH x10^3 (test code 0.73 10*3/uL 1.32-3.29 L = 731-0) MONO x10^3 (test code 0.69 10*3/uL 0.33-0.92 = 742-7) EOS x10^3 (test code = <0.03 0.03-0.39 L 711-2) BASO x10^3 (test code <0.03 0.01-0.07 = 704-7) Lab Interpretation Abnormal (test code = 13460-1) [facility] W/AUTO [id number] 07:59:00 Test Item Value Reference Range Interpretation Comments WHITE BLOOD CELL (test code = 10.7 x10 3/uL 4.5-11.0 N WBC) RED BLOOD CELL (test code = 3.77 x10 6/uL 3.54-5.02 N RBC) HEMOGLOBIN (test code = HGB) 8.0 g/dL 11.0-15.0 L HEMATOCRIT (test code = HCT) 27.2 % 33.0-45.0 L MEAN CELL VOLUME (test code = 72.1 fL 81.0-99.0 L MCV) MEAN CELL HGB (test code = MCH) 21.2 pg 27.0-33.0 L MEAN CELL HGB CONCETRATION 29.4 g/dL 33.0-37.0 L (test code = MCHC) RED CELL DISTRIBUTION WIDTH CV 17.0 % 11.5-14.5 H (test code = RDW) RED CELL DISTRIBUTION WIDTH SD 42.8 fL 37.0-54.0 N (test code = RDW-SD) PLATELET COUNT (test code = 325 x10 3/uL 150-400 N PLT) MEAN PLATELET VOLUME (test code 10.9 fL 7.0-9.0 H = MPV) NEUTROPHIL % (test code = NT%) 71.6 % 56.0-77.0 N IMMATURE GRANULOCYTE % (test 2.1 % 0.0-2.0 H code = IG%) LYMPHOCYTE % (test code = LY%) 18.1 % 14.0-32.0 N MONOCYTE % (test code = MO%) 6.2 % 4.8-9.0 N EOSINOPHIL % (test code = EO%) 1.5 % 0.3-3.7 N BASOPHIL % (test code = BA%) 0.5 % 0.0-2.0 N NUCLEATED RBC % (test code = 0.0 % 0-0 N NRBC%) NEUTROPHIL # (test code = NT#) 7.68 x10 3/uL 2.0-7.6 H IMMATURE GRANULOCYTE # (test 0.23 x10 3/uL 0.00-0.03 H code = IG#) LYMPHOCYTE # (test code = LY#) 1.94 x10 3/uL 1.0-3.8 N MONOCYTE # (test code = MO#) 0.66 x10 3/uL 0.1-0.8 N EOSINOPHIL # (test code = EO#) 0.16 x10 3/uL 0.0-0.2 N BASOPHIL # (test code = BA#) 0.05 x10 3/uL 0.0-0.2 N NUCLEATED RBC # (test code = 0.00 x10 3/uL 0.0-0.1 N NRBC#) MANUAL DIFF REQUIRED (test code NO = MDIFF) CBC W/AUTO [id number] 07:22:00 Test Item Value Reference Range Interpretation Comments WHITE BLOOD CELL (test code = x10 3/uL 4.5-11.0 WBC) RED BLOOD CELL (test code = RBC) x10 6/uL 3.54-5.02 HEMOGLOBIN (test code = HGB) g/dL 11.0-15.0 HEMATOCRIT (test code = HCT) % 33.0-45.0 MEAN CELL VOLUME (test code = fL 81.0-99.0 MCV) MEAN CELL HGB (test code = MCH) pg 27.0-33.0 MEAN CELL HGB CONCETRATION (test g/dL 33.0-37.0 code = MCHC) RED CELL DISTRIBUTION WIDTH CV % 11.5-14.5 (test code = RDW) PLATELET COUNT (test code = PLT) 325 x10 3/uL 150-400 N NEUTROPHIL % (test code = NT%) % 56.0-77.0 LYMPHOCYTE % (test code = LY%) % 14.0-32.0 NEUTROPHIL # (test code = NT#) x10 3/uL 2.0-7.6 LYMPHOCYTE # (test code = LY#) x10 3/uL 1.0-3.8 MANUAL DIFF REQUIRED (test code = MDIFF) RAPID PLASMA [id number] 11:24:00 Test Item Value Reference Range Interpretation Comments RAPID PLASMA REAGIN (test code = NONREACTIVE NONREACTIVE RPR) AG HEPATITIS B [id number] 11:24:00 Test Item Value Reference Range Interpretation Comments AG HEPATITIS B SURFACE NON REACTIVE INDEX NonReactive (test code = HBSAG) AB HIV 1 11:24:00 Test Item Value Reference Range Interpretation Comments AB HIV 1 2 (test code = NONREACTIVE INDEX NONREACTIVE USK72HY) CORD VENOUS BLOOD [id number] 23:51:00 Test Item Value Reference Range Interpretation Comments CORD VENOUS PH (test code = PHCV) 7.38 7.25-7.45 N CORD VENOUS PCO2 (test code = 36 mmHg 27-49 N PCO2CV) CORD VENOUS PO2 (test code = 34 mmHg 17-41 N PO2CV) CORD VENOUS HCO3 (test code = 21.7 MMOL/L 12-28 N HCO3CV) CORD VENOUS BASE EXCESS (test -3.5 mmol/L -8.0-0.00 N code = BEXCV) CORD VENOUS 02 SAT (test code = 66 % O2SCV) CBG TEMPERATURE (test code = 98 F TEMPC) COVID 19 Asymptomatic IH [id number] 18:09:00 Test Item Value Reference Range Interpretation Comments COVID 19 Asymptomatic Negative Negative A nega tive result is IH AG (test code = presumpti ve and should COVNONPUIAG) be confirmedwit h an FDA authorized mole cular assay, if neces darlin forpatient nae gement.A positive result does not rule out co-inf ections withother patho gens.This test detects aaron th viable (live) and non-viable,SARS -CoV, and SARS-CoV-2. Dewayne t performance dep ends on theamount of vi soila (antigen) in th e sample.This dewayne t has not been FDA cleare d or approved; the t est hasbeen authori fridad by FDA under an Em ergency Use Authorizati on(EUA) for use by labo ratories certified under the CLIA thatmeet the requirements to perform moderate, high or waivedcomplexit y tests. COMMENTS: If not [facility] [id number] 17:31:00 Test Item Value Reference Range Interpretation Comments WHITE BLOOD CELL (test code = 11.5 x10 3/uL 4.5-11.0 H WBC) RED BLOOD CELL (test code = 4.39 x10 6/uL 3.54-5.02 N RBC) HEMOGLOBIN (test code = HGB) 9.6 g/dL 11.0-15.0 L HEMATOCRIT (test code = HCT) 32.1 % 33.0-45.0 L MEAN CELL VOLUME (test code = 73.1 fL 81.0-99.0 L MCV) MEAN CELL HGB (test code = MCH) 21.9 pg 27.0-33.0 L MEAN CELL HGB CONCETRATION 29.9 g/dL 33.0-37.0 L (test code = MCHC) RED CELL DISTRIBUTION WIDTH CV 16.4 % 11.5-14.5 H (test code = RDW) RED CELL DISTRIBUTION WIDTH SD 42.8 fL 37.0-54.0 N (test code = RDW-SD) PLATELET COUNT (test code = 395 x10 3/uL 150-400 N PLT) MEAN PLATELET VOLUME (test code 11.3 fL 7.0-9.0 H = MPV) NEUTROPHIL % (test code = NT%) 73.0 % 56.0-77.0 N IMMATURE GRANULOCYTE % (test 3.9 % 0.0-2.0 H code = IG%) LYMPHOCYTE % (test code = LY%) 15.1 % 14.0-32.0 N MONOCYTE % (test code = MO%) 6.5 % 4.8-9.0 N EOSINOPHIL % (test code = EO%) 1.0 % 0.3-3.7 N BASOPHIL % (test code = BA%) 0.5 % 0.0-2.0 N NUCLEATED RBC % (test code = 0.0 % 0-0 N NRBC%) NEUTROPHIL # (test code = NT#) 8.35 x10 3/uL 2.0-7.6 H IMMATURE GRANULOCYTE # (test 0.45 x10 3/uL 0.00-0.03 H code = IG#) LYMPHOCYTE # (test code = LY#) 1.73 x10 3/uL 1.0-3.8 N MONOCYTE # (test code = MO#) 0.75 x10 3/uL 0.1-0.8 N EOSINOPHIL # (test code = EO#) 0.12 x10 3/uL 0.0-0.2 N BASOPHIL # (test code = BA#) 0.06 x10 3/uL 0.0-0.2 N NUCLEATED RBC # (test code = 0.00 x10 3/uL 0.0-0.1 N NRBC#) MANUAL DIFF REQUIRED (test code NO = MDIFF) RBC [id number] 17:31:00 Test Item Value Reference Range Interpretation Comments POLYCHROMASIA (test code = POLC) SLIGHT POIKILOCYTOSIS (test code = POIK) 1+ ANISOCYTOSIS (test code = ANISO) 1+ MICROCYTOSIS (test code = MICR) 1+ MACROCYTOSIS (test code = MACR) FEW ELLIPTOCYTES (test code = ELL) 1+ RAPID PLASMA [id number] 17:26:00 Test Item Value Reference Range Interpretation Comments RAPID PLASMA REAGIN (test code = RPR) NONREACTIVE AG HEPATITIS B [id number] 17:26:00 Test Item Value Reference Range Interpretation Comments AG HEPATITIS B SURFACE NON REACTIVE INDEX NonReactive (test code = HBSAG) AB HIV 1 17:26:00 Test Item Value Reference Range Interpretation Comments AB HIV 1 2 (test code = NONREACTIVE INDEX NONREACTIVE [id number]) CBC W/AUTO [id number] 16:39:00 Test Item Value Reference Range Interpretation Comments WHITE BLOOD CELL (test code = 11.5 x10 3/uL 4.5-11.0 H WBC) RED BLOOD CELL (test code = 4.39 x10 6/uL 3.54-5.02 N RBC) HEMOGLOBIN (test code = HGB) 9.6 g/dL 11.0-15.0 L HEMATOCRIT (test code = HCT) 32.1 % 33.0-45.0 L MEAN CELL VOLUME (test code = 73.1 fL 81.0-99.0 L MCV) MEAN CELL HGB (test code = MCH) 21.9 pg 27.0-33.0 L MEAN CELL HGB CONCETRATION 29.9 g/dL 33.0-37.0 L (test code = MCHC) RED CELL DISTRIBUTION WIDTH CV 16.4 % 11.5-14.5 H (test code = RDW) RED CELL DISTRIBUTION WIDTH SD 42.8 fL 37.0-54.0 N (test code = RDW-SD) PLATELET COUNT (test code = 395 x10 3/uL 150-400 N PLT) MEAN PLATELET VOLUME (test code 11.3 fL 7.0-9.0 H = MPV) NEUTROPHIL % (test code = NT%) 73.0 % 56.0-77.0 N IMMATURE GRANULOCYTE % (test 3.9 % 0.0-2.0 H code = IG%) LYMPHOCYTE % (test code = LY%) 15.1 % 14.0-32.0 N MONOCYTE % (test code = MO%) 6.5 % 4.8-9.0 N EOSINOPHIL % (test code = EO%) 1.0 % 0.3-3.7 N BASOPHIL % (test code = BA%) 0.5 % 0.0-2.0 N NUCLEATED RBC % (test code = 0.0 % 0-0 N NRBC%) NEUTROPHIL # (test code = NT#) 8.35 x10 3/uL 2.0-7.6 H IMMATURE GRANULOCYTE # (test 0.45 x10 3/uL 0.00-0.03 H code = IG#) LYMPHOCYTE # (test code = LY#) 1.73 x10 3/uL 1.0-3.8 N MONOCYTE # (test code = MO#) 0.75 x10 3/uL 0.1-0.8 N EOSINOPHIL # (test code = EO#) 0.12 x10 3/uL 0.0-0.2 N BASOPHIL # (test code = BA#) 0.06 x10 3/uL 0.0-0.2 N NUCLEATED RBC # (test code = 0.00 x10 3/uL 0.0-0.1 N NRBC#) MANUAL DIFF REQUIRED (test code NO = MDIFF) RBC [id number] 16:39:00 Test Item Value Reference Range Interpretation Comments ANISOCYTOSIS (test code = ANISO) CBC W/AUTO [id number] 16:39:00 Test Item Value Reference Range Interpretation Comments WHITE BLOOD CELL (test code = 11.5 x10 3/uL 4.5-11.0 H WBC) RED BLOOD CELL (test code = 4.39 x10 6/uL 3.54-5.02 N RBC) HEMOGLOBIN (test code = HGB) 9.6 g/dL 11.0-15.0 L HEMATOCRIT (test code = HCT) 32.1 % 33.0-45.0 L MEAN CELL VOLUME (test code = 73.1 fL 81.0-99.0 L MCV) MEAN CELL HGB (test code = MCH) 21.9 pg 27.0-33.0 L MEAN CELL HGB CONCETRATION 29.9 g/dL 33.0-37.0 L (test code = MCHC) RED CELL DISTRIBUTION WIDTH CV 16.4 % 11.5-14.5 H (test code = RDW) RED CELL DISTRIBUTION WIDTH SD 42.8 fL 37.0-54.0 N (test code = RDW-SD) PLATELET COUNT (test code = 395 x10 3/uL 150-400 N PLT) MEAN PLATELET VOLUME (test code 11.3 fL 7.0-9.0 H = MPV) NEUTROPHIL % (test code = NT%) 73.0 % 56.0-77.0 N IMMATURE GRANULOCYTE % (test 3.9 % 0.0-2.0 H code = IG%) LYMPHOCYTE % (test code = LY%) 15.1 % 14.0-32.0 N MONOCYTE % (test code = MO%) 6.5 % 4.8-9.0 N EOSINOPHIL % (test code = EO%) 1.0 % 0.3-3.7 N BASOPHIL % (test code = BA%) 0.5 % 0.0-2.0 N NUCLEATED RBC % (test code = 0.0 % 0-0 N NRBC%) NEUTROPHIL # (test code = NT#) 8.35 x10 3/uL 2.0-7.6 H IMMATURE GRANULOCYTE # (test 0.45 x10 3/uL 0.00-0.03 H code = IG#) LYMPHOCYTE # (test code = LY#) 1.73 x10 3/uL 1.0-3.8 N MONOCYTE # (test code = MO#) 0.75 x10 3/uL 0.1-0.8 N EOSINOPHIL # (test code = EO#) 0.12 x10 3/uL 0.0-0.2 N BASOPHIL # (test code = BA#) 0.06 x10 3/uL 0.0-0.2 N NUCLEATED RBC # (test code = 0.00 x10 3/uL 0.0-0.1 N NRBC#) MANUAL DIFF REQUIRED (test code NO = MDIFF) RBC [id number] 16:39:00 Test Item Value Reference Range Interpretation Comments ANISOCYTOSIS (test code = ANISO) AMNISURE (ROM) [id number] 18:51:00 Test Item Value Reference Range Interpretation Comments AMNISURE (ROM) TEST (test code = NEGATIVE NEGATIVE AMNI) Total Beta HCG [id number] 16:40:00 Test Item Value Reference Range Interpretation Comments BETA HCG (test See_Comment [Automated m essage] code = The system [employer] h [id number]) generated this result transmit lucina reference range : Non- fe male and male patien ts: <5 mIU/mL. The reference range was not used to interpret this result as normal/abnormal . MONISHA (test code Gestational Age ? ? = MONISHA) ?Range (mIU/mL) 1-10 ?Weeks ?12-38397867-15 Weeks ?62744-15005725-24 Weeks ?4130-98605736-98 Weeks ?2085-836622 Biotin has been reported to cause a negative bias, interpret results relative to patient's use of biotin. [facility] [id number] 16:00:00 Test Item Value Reference Range Interpretation Comments APPEARANCE (test code = Cloudy Clear A 7881798450) COLOR (test code = Other Yellow A turbid 8503447025) PH (test code = 4.8-8.0 1184089499) SP GRAVITY (test code = 1.003-1.030 7542496464) GLU U QUAL (test code = Negative Negative 0952222761) BLOOD (test code = Negative Negative 4083655159) KETONES (test code = Negative Negative 9475102301) PROTEIN (test code = Negative Negative 2887-8) UROBILIN (test code = 0.2 mg/dL See_Comment [Auto mated message] 2964669965) The system [employer] generated this result transmit lucina reference range : 0-1.0 mg/dL. Th e reference range was not used to interpret this result as normal/abnormal . BILIRUBIN (test code = Negative Negative 8168416200) NITRITE (test code = Negative Negative 7146332483) LEUK EMA (test code = Negative Negative 9489856359) RBC/HPF (test code = <1 See_Comment [Autom ated message] 0069820164) The system [employer] generated this result transmit lucina reference range : 0 - 3 HPF. The refe rence range was not u sed to interpret th is result as normal/abnormal . WBC/HPF (test code = See_Comment [Autom ated message] 8241315061) The system [employer] generated this result transmit lucina reference range : 0 - 5 HPF. The refe rence range was not u sed to interpret th is result as normal/abnormal . BACTERIA (test code = Many Negative A 3604072062) AMORPHOUS (test code = Many Rare HPF A 0399899894) SQ EPITH (test code = HPF 5574221735) TRANS EPI (test code = See_Comment [Aut omated message] 0697978534) The system [employer] generated this result transmit lucina reference range : <=1 HPF. The refere nce range was not u sed to interpret th is result as normal/abnormal . Lab Interpretation (test Abnormal code = 83131-6) [facility] [id number] 15:55:00 Test Item Value Reference Range Interpretation Comments NA (test code = 135 mmol/L 135-145 5527737782) K (test code = 3.8 mmol/L 3.5-5 9761270507) CL (test code = 102 mmol/L 98-108 3670466102) CO2 TOTAL (test code = 25 mmol/L 23-31 2392119011) AGAP (test code = 2-16 8188501827) BUN (test code = 7 mg/dL 7-23 8505663781) GLUCOSE (test code = 92 mg/dL 70-110 5738093657) CREATININE (test code = 0.30 mg/dL 0.5-1.04 L 9484384396) TOTAL BILI (test code = 0.4 mg/dL 0.1-1.1 3489053849) CALCIUM (test code = 9.0 mg/dL 8.6-10.6 8641409245) T PROTEIN (test code = 7.2 g/dL 6.3-8.2 9535731752) ALBUMIN (test code = 4.1 g/dL 3.5-5 8648132037) ALK PHOS (test code = 60 U/L 34-122 5213597389) ALTv (test code = 24 U/L 5-35 1742-6) AST(SGOT) (test code = 26 U/L 13-40 8915398559) eGFR Calculation mL/min/1.73m2 (Non-) (test code = 4259583014) eGFR Calculation mL/min/1.73m2 () (test code = 2215138937) MONISHA (test code = MONISHA) Association of Glomerular Filtration Rate (GFR) and Staging of Kidney Disease* + --+ --+ ------+| GFR (mL/min/1.73 m2) ?| With Kidney Damage ?| ?Without Kidney Damage+ --------+ --------+ +| ?>90 ?| ?Stage one ?| ? Normal ?+ ---+ ---+ -------+| ?60-89 ?| ?Stage two ?| ? Decreased GFR ? + --+ --+ ------+| ?30-59 ?| ?Stage three ?| ? Stage three ? + --+ --+ ------+| ?15-29 ?| ?Stage four ? | ? Stage four ?+ ---+ ---+ -------+| ?<15 (or dialysis) ? ?| ?Stage five ? | ? Stage five ?+ ---+ ---+ -------+ *Each stage assumes the associated GFR level has been in effect for at least three months. ?Stages 1 to 5, with or without kidney disease, indicate chronic kidney disease. Notes: Determination of stages one and two (with eGFR >59mL/min/1.73 m2) requires estimation of kidney damage for at least three months as defined by structural or functional abnormalities of the kidney, manifested by either:Pathological abnormalities or Markers of kidney damage (including abnormalities in the composition of the blood or urine or abnormalities in imaging tests). Lab Interpretation Abnormal (test code = 59437-0) [facility] HospitalLip[facility], [id number] 15:55:00 Test Item Value Reference Range Interpretation Comments LIPASE (test code = 3439904404) 37 U/L 0-220 Lab Interpretation (test code = Normal 39293-6) [facility] with [id number] 15:35:00 Test Item Value Reference Range Interpretation Comments WBC (test code = See_Comment [Automated 5090-2) message] The sy stem which generated this result transmitted reference range : 4.30 - 11.10 10*3/?L. The reference range was not used to interpret this result as normal/abnormal . RBC (test code = See_Comment [Automated 929-8) message] The sy stem which generated this result transmitted reference range : 3.93 - 5.25 10*6/?L. The reference range was not used to interpret this result as normal/abnormal . HGB (test code = 11.5 g/dL 11.6-15 L 718-7) HCT (test code = 36.7 % 35.7-45.2 4544-3) MCV (test code = 78.4 fL 80.6-95.5 L 787-2) MCH (test code = 24.6 pg 25.9-32.8 L 785-6) MCHC (test code = 31.3 g/dL 31.6-35.1 L 786-4) RDW-SD (test code = 45.1 fL 39-49.9 79375-1) RDW-CV (test code = 15.8 % 12-15.5 H 788-0) PLT (test code = See_Comment [Automated 7-3) message] The sy stem which generated this result transmitted reference range : 166 - 358 10*3/ ?L. The reference r boogie was not used to interpret this result as normal/abnormal . MPV (test code = 10.6 fL 9.5-12.9 41981-8) NRBC/100 WBC (test See_Comment [Automat ed code = 9033766101) message] The system which generated this result transmitted reference range : 0.0 - 10.0 /100 WBCs. The refer ence range was not u sed to interpret th is result as normal/abnormal . NRBC x10^3 (test code <0.01 See_Comment [Auto mated = 8419441220) message] The s ystem which generated this result transmitted reference range : 10*3/?L. The reference range was not used to interpret this result as normal/abnormal . GRAN MAT (NEUT) % 67.3 % (test code = 770-8) IMM GRAN % (test code 0.30 % = 3626719432) LYMPH % (test code = 24.1 % 736-9) MONO % (test code = 5.4 % 5905-5) EOS % (test code = 2.2 % 713-8) BASO % (test code = 0.7 % 706-2) GRAN MAT x10^3(ANC) 3.97 10*3/uL 1.88-7.09 (test code = 9138083996) IMM GRAN x10^3 (test <0.03 0-0.06 code = 7246283827) LYMPH x10^3 (test code 1.42 10*3/uL 1.32-3.29 = 731-0) MONO x10^3 (test code 0.32 10*3/uL 0.33-0.92 L = 742-7) EOS x10^3 (test code = 0.13 10*3/uL 0.03-0.39 711-2) BASO x10^3 (test code 0.04 10*3/uL 0.01-0.07 = 704-7) Lab Interpretation Abnormal (test code = 97259-2) [facility] [id number] 15:26:00 Test Item Value Reference Range Interpretation Comments POCT PREG (test code = 1605) positive On board controls acceptable with present C Line (test code = 3574) POCT PREG LOT # (test code = 3575) [id number] POCT PREG TEST DATE (test code = 3576) Lab Interpretation (test code = Normal 54206-2) [facility] HospitalAD,CLC OR [facility] ONLY - INFLUENZA A & B DIRECT [id number] 23:17:00 Test Item Value Reference Range Interpretation Comments Influenza A (test code = 41870-8) Negative Negative Influenza B (test code = 30131-4) Negative Negative Lab Interpretation (test code = Normal 33234-0) [facility] STREP SCREEN FOR GROUP [id number] 23:14:00 Test Item Value Reference Range Interpretation Comments Streptococcus pyogenes (group A) Negative Negative antigen (test code = 37065-4) Lab Interpretation (test code = Normal 12904-1) [facility] PATHOLOGY [id number] 18:46:00 Test Item Value Reference Range Interpretation Comments Case Report (test code Surgical = [id number]) Pathology?Case: [id number]? Authorizing Provider:?Celia Coombs MD?Collected:? 09/19/2018 0853?Ordering Location:? [facility] Medicine Surgery Unit?Received:? 019 9974?Pathologist:? Xiomara Antunez,? ? ? Specimen:?PRODUCTS OF CONCEPTION, suction d&c? Final Diagnosis (test m4zxcUHoUOXzr6hdWZEuhQ code = 2175364142) FuZzEwMzNcZnRuYmpcdWMx DClwtfOvDQtcs0UbJ7ShXo AwMFxhbnNpXGRlZmxhbmcx CJSoMOQ2qjAzJUHjEZteUH KuAQbbCe7naZCytRaxDwGm RBIil8ukxwVOgrvcoFk1e0 jnNOUqPmM2yOEzZXbeT6cm iaFksOFiHHDiAVu9xY35TF VstK5vmVRaVEjvltAfRlK6 FObdTJRaHeY2KGNxjBKvPP QtQ9mvFDFmFJhoIJKbQVsf uJJpOGQ9yEyge7J9nCLveM LuqWlwIzZnQtFqXESYb7Dp TRy6jAtmK4EhFOOuZwY9rZ QgUGFyYWdyYXBoIEZvbnQ7 mB63DXmhuiM6iXIjf5Dam6 4um596gT2hvUAoCLC2VLXj JMWjtZClTAPnHNA9MFDjlY FmD6tpQVldJI5nqqtdENI5 MFxtYXJndDcyMFxtYXJnYj XqxVHbJHYayMngVFmdl141 MAY0BjGxOE6sT1Qjz4T7pX 9maXRcZGVmdGFiNzIwXGZv tv7ndDUiOZthy5YrMGZ1dq D7vHNlfXWwEORySO01Aucw x0OqFheuZRR8DPSgfbCet9 CoBNS1kg2zoVGoiXldboNh yJOjZMnhU8PxXXUuz397TN VtU8WqPJCwy7N0ziOlCvUg BTAldXG2mvZ3APNdYEc3aF CnraY2brYofTSuO1vpoS0l CNycJI8meuebv7nbAAF1MC iuCVBdpYE5gzkeOMkiFMDp PnC4ltVhtDEpABFzhTmbEP dvv170BNS1DlZmUQJud9Lf C9GsbFvhF96ynNkaT90cVH ZqxNdwtA6idOjcvW4vUgOo ZnMyNFxxbFxwbGFpblxmMV xmczIwXGxhbmcxMDMzXGhp X4ftSsKtPIPysHgjGDznf4 NoXGYxXGZzMjBccGFyXHBh dkZotNoiwH5oJzMkSsKiAA xwbGFpblxmMVxmczIwXGxh zewtXFUlLVshK5xsLxOcRV SeuOviVTwai6VvJGZiPXCj PlLxSH3kXUSOVbfLVKUQH6 8WNL4JSqhqCHNYT1JKBVfU VveskFRdNGChHKJlDY5uER zKULEJHDYLOznYXYGRIV8M RVRSSVRJUyBccGFyICAgIC RtRW8gJWWWHCRGYRopR9QN IwWTB2WJIHEDYP9CFWXVVU FPILQIBrYeQqjZL0JnkZXj WUZvUYUfTL5iOz3hD9hHVj oDOlxZSGRASYuIFYkYEY8Y SUZJRURccGFyfXtccnRmMV mmx3KiG8AjEyCtLLlpdqZd NICuPdcnfqxpWBYrLRH9xl CcIFLgQAawCJKjAHndIt2o yHLgbRskFpMtSEMjf1akhc GOSJwvUfHpE743SDXhSMuq y5gsn5HrDDWcwIWva5S6ZD WNyaypcBb6j0yuMsHbJhP8 nUOiVMmrF2vhjeGjdZPqW9 FxcZKccZb5gWbpK36ss7I8 SpojM8leHFFmNQArI1OxJK 5fIIOeEtm1AMF3HJJ9CHVe EEJuT6TqLS0sSEQcxCBpAX s7y2yfhCwsSHDnKUH4c9vc WMubkvX1SL1fxf3rcLy2i9 xjczEgRGVmYXVsdCBQYXJh B7LbxDfnBi0qdEn3bDwpSj atUDO4Lbe5PU5xvp75eju8 fJmlYHEfbfyyHlS1KIzyTE EbmbcmHQt9DEdrSTFiePG3 BLDvlTAdO9UcPEGkDB6zhw k2PRV4JVdcZMEdEpG0ARAf nSGcOAYepSytFNeki456CM H0WkCpZG5cF1Jig7S0sU8k aXRcZGVmdGFiNzIwXGZvcm 6izGYvBOeua3OgMEG9wvS9 gOVrnZDsGYZfYM78Nagmv1 UiOrvgHTR1MOSzzvLwi8Nl s6poMkPesmNdG7pmF8ZdWD UwKWIbNOPoAbZrlzMok9Dt a4KtnOCkrEt1j5lpBQVkXM RuvFxfv4doQKL7QRTlT7U1 vXDmc7jaICyzVVTuvDV0fv I6HCGquVSgX2DmtH8qOUEd NO5vqnp9a9ejUSZ6BJtyNM VvQyW8pgE4WCOldLSdMGRi rRreEHlqd304SJS3JbGbNN Uuk4CnD3PldUpzK43cwGek K99fQAPzgEsmvQ7dcTnnzE 5cZjBcZnMyNFxxbFxwbGFp blxmMVxmczIwXGxhbmcxMD MvQDkjB2jfTvGrXMGcyEae FKeyo0QtQHNdLQQjBepzsv IwXHBhciBJIGhhdmUgcGVy k01nAIcjqITcDPKtUFdxUR WozYxbo4KlC8yoYA2dZ3Hk aWRlcyBhbmQgYWdyZWUgd2 g3tPIzqSacp5MqbDHrOX76 drUtCNOdZZC1OTTpx0ohGN 15sypbVnStaP71wdMvdgDa TWKrk7bzC4eifVAbw6Vtg1 SqzfHjHMrmn7GfPF8zuICi inzoaSV2DPVrtMCmaqJlja S9eYdsLVNoqV6lmJ6erOvr lG8wPlRuIjBqZXtfEN8kLO SqH4epdATeBQJwJLYdT2rh MlZrzA8gqOujQfzxugI2YT Bhcn19 Clinical Information Had elective (test code = at approx 14wks [id number]) gestation. Presented to ED 6wks later with high temp and lower abdominal tenderness. Gross Description (test h8ddoAObPZVqzOXbWkPkPO code = 8735489838) FrLTZjt4gxWOLgmOZiAhIu MzNcZnRuYmpcdWMxXGRlZm Knn9akc761vQEko4joVRJj FkU0eHGbAIBudJOzK642TU PoLGnkx3zxa1WwBDDfkRLg b2P6BXXLfpsmrKz1aOvcG9 5ds6V8MkzxA6fyTMJjHWCz A7ZnRL7fOAWzAod8SAS3OZ K4LQIyBLAjE9XeYF0mIHUh lXPhZMc9y2mhtDciJZCpQO P8o0ffVSklonHrZG8cbi3z fUi3q5pvtyDqYSZbFTBdxZ VMXTOuD3XclCkwDr0kmZw1 wCcxNqkmCMC6Lln6QV9ryk 29lns6xYxwPJTxbmlgPfH1 NGgrZPUntqihPHs4GPucXE ChgJNmRLEsmGYuI4YaYBwd WK0onmo0LfMhPL5lzcopWB qhNOAsGMD8OxVjBPUqx3Dd sbavFcOvoy0egg71XZE7r5 XsmJnaWKB9KFO6FrAwUi8g vYQoTGZtOG5nTtCywQOfXP Hsdh08eSvtWMtajlAkuQ1j GqBtUE8ssRqsh64nTPEdXX 3ivB2iai2togExXMctjJGi xJL6vemqYDK5SODxalHkt2 GbRJW1ir2ooEFrnNaeibDd zCRhBVprR5LgSSFwp459LL HtO3FbXJAju4D1yiChBvNf AIMzeDY1aiV0DQUqNDx9cZ SvznL4jsBogQWrF8urzP0y WDnyZA7nqufca9djFSF8BG feELAvoTE1bogdOFtdSZSi ZqI8nzAcmNJwPWTbyWsxSB qdc218KOW0YzLdFLLmm4Il W1CkkZduO07ykUsiD91mKT EzpBgzxX6uiDchrH3iUuUn ZnMyNFxxbFxwbGFpblxmMV xmczIwXGxhbmcxMDMzXGhp N7vfZuMvJXXgfYwqMQqky5 NoXGYxXGNmMlxmczIwXGx0 cmNoIFNwZWNpbWVuIFxwbG FpblxmMVxmczIwXGxhbmcx HISmQPdxO0xoUjVeRJJfuZ opNLnky1RbZUHaQLAoPsQm QSBpcyByZWNlaXZlZCBmcm VzaCBpbiBhIEJlcmtsZXkg B5UaJA5Ag4JngRQeqFP6wT 3iLJXtaedeXBEmpNihhF8u StSiYlPaHNqmNX6mHDPyU0 kzbARsMQJgMKJpM7uoRpBr wV5dtXrxBYwkUkFhBtAdHT xsdHJjaCBsYWJlbGxlZCB3 eRHkIQMsBHCkUKIgGQ67VM BsYWluXGYxXGZzMjBcbGFu ZzEwMzNcaGljaFxmMVxkYm CePBDoNFytC0mdAgMkX1Cg IPLvIxUaoRRsT0ogrEyiPA hxTDf2RgfuhCZqykjrAJrz czIwXGxhbmcxMDMzXGhpY2 paZgHkEQWkaJsxXQkqx3Mc ELPwKHKhUwdrbbZoVJp8fe NoIHMgbmFtZSwgVUggbnVt YmVyIFxwbGFpblxmMVxmcz AbYPxunnszFLLpKXynX0ac IoIcDRWcdZvyYNdxu2WzJX NtXWGpLuXrWdBzx2R7L7Hx z1TuC08kR6PvlWblyhxszN FpblxmMVxmczIwXGxhbmcx JEBpWMmfN1hrUgHrGWWtvC sgVXccy2SxMNQsNUDeNgig hkNhUHh5sqToIWZ0YrGuIN pcATDtcJbtfV8tFjToWiBa OOfkAL2iQRSxK2rfbXDuCV QgKAGiE1ilAyCwtR3plZqh MVxjZjJcZnMyMFxsdHJjaC ZbKE2vXPFgmsOcf9NxHP9j IFxwbGFpblxmMVxmczIwXG onbljhAFZaOXzoI5iuQlWv QUKwvJegCXdgh2GeZJRcQH PjZmAdXO0pAAulkdUwIEAl VR0vBT33aZXzcNeyTOUeBF BfiFpfeklerACoy1IeaXZf aVNwe78qyNB2iZHjyISkDV LagEj6NJZle8k1mOBqjU8f ZFxwbGFpblxmMVxmczIwXG ovdnkrWLZaCVkfS6koJuJe XRTvmDhgXLjgd4WsAWNmLG NvUszrrcFxAMz5tzUtXSBb lAasaC1bUuPtJqBnBQglVR 6zXWAwH9tdkZFyLYZeCZGo Z6puWvQgpD6zcGduAUclww RcKJb7JkYyoQJ2AxXgeUSd BnztY85xXrTDqXZzz4KuF4 orDP8beFOnsJLdaNAtxPcv WMunz9KagPNgLSPaVLZfBI LsDUhpXIGuZBEsmOyxTJ44 mAqbH3tftQXuNZHesC8jTF BmyWSzEK03kySphoCoHcIg L11muxZcYE9mFWRqatxreP RaIE1hhEMnNS8maSIepMic h7QmWqDrE3qyoevtmpohAZ WueIcbOIUaFXThx2QhnRPh pyXqSbdcVEKnrx4gj1n7ID JwADSwexEuiIZqgmO8ZTLs bKGrfI7fqWFysRLprFJhOW JlIHByZXNlbnQuIFNwZWNp iYWgVKcuYLZ4Pg4foCVkTW BlbnRpcmVseSBhcyBBMVxw bGFpblxmMVxmczIwXGxhbm llWFYjRIqhR5muPxOrXFDj aDsvCIsif4JeTFLjIKXeIq AbxCieYIZxVAo2DsadnTGu blxmMVxmczIwXGxhbmcxMD NmKKyuA7ysRzDcIXVguBvc IUsaj9BqQDNuCTAmJmYcWM YuXHBhclxwYXJccGFyZFxw xHVyqvhlFTozqdK7ZUAfAG luXGYxXGZzMjBcbGFuZzEw MzNcaGljaFxmMVxkYmNoXG CySUdbQ7nsQrGbWaEkEVKB TMQjSF81jxrzkgBCYFGpCQ X8sY5at0hrn5GyLBTpsYD0 DD95DGfeSVZzdOoplXnloZ 5cZjBcZnMyNFxwbGFpblxm MVxmczIwXGxhbmcxMDMzXG abK0doUeInDBBolMlhNUpq i6UpQKKoAEWgVlQbgLLgeV == Embedded Images (test code = 5443934685) [facility] ABDOMEN [id number] 14:15:10* * * * * * * * ORIGINAL REPORT * * * * * * * *ULTRASOUND ABDOMEN: HISTORY: Abdomen pain TECHNIQUE:Sonographic evaluation of the abdomen is performed. FINDINGS: Liver is slightly enlarged in size andmeasures 18.7 cm. No definite focalmasses are seen in the liver. Portal venous flow is in the normaldirection. Portal vein measures 9 mm.. Gallbladder is normal. No gallstones, wall thickening or peric holecysticfluid is present. Slight prominence of the gallbladder wall is most likelyrelated to partial distention since patient is not nothing by mouth Pancreas, spleen are normal in size shape and echotexture. The kidneys are normal in size, shape and appearance. No hydronephrosis orperirenal fluid is seen. The right kidney measures 12.0 x 5.5 x 5.8 cm andthe left kidney measures 11.4 x 5.7 x 5.4 cm. The abdominal aorta is normal in caliber. CONCLUSIONS: Normal ultrasound of the abdomen. [facility], Radiant Results Inft User - 09/21/2018 9:17 AM CDT* * * * * * * * ORIGINAL REPORT * * * * * * * *ULTRASOUND ABDOMEN: HISTORY: Abdomen painTECHNIQUE: Sonographic evaluation of the abdomen is performed.FINDINGS:Liver is slightly enlarged in size and measures 18.7 cm. No definite focalmasses are seen in the liver. Portal venous flow is in the normaldirection. Portal vein measures 9 mm.. Gallbladder is normal. No gallstones, wall thickening or pericholecysticfluid is present. Slight prominence of the gallbladder wall is most likelyrelated to partial distention since patient is not nothing by mouthPancreas, spleen are normal in size shape and echotexture. The kidneys are normal in size, shape and appearance. No hydronephrosis orperirenal fluid is seen. The right kidney measures 12.0 x 5.5 x 5.8 cm andthe left kidney measures 11.4 x 5.7 x 5.4 cm.The abdominal aorta is normal in caliber. CONCLUSIONS: Normal ultrasound of the abdomen.[facility] [id number] 12:00:00 Test Item Value Reference Range Interpretation Comments Throat Culture (test No Beta-Hemolytic code = 626-2) Streptococcus isolated [facility] [id number] 16:32:00 Test Item Value Reference Range Interpretation Comments URINE CULTURE (test No aerobic growth (< code = 630-4) 1000 CFU/mL) [facility] WITH [id number] 15:55:00 Test Item Value Reference Range Interpretation Comments WBC (test code = See_Comment [Automated 2176-2) message] The sy stem which generated this result transmitted reference range : 4.30 - 11.10 10*3/?L. The reference range was not used to interpret this result as normal/abnormal . RBC (test code = See_Comment L [Automated 499-8) message] The sy stem which generated this result transmitted reference range : 3.93 - 5.25 10*6/?L. The reference range was not used to interpret this result as normal/abnormal . HGB (test code = 8.5 g/dL 11.6-15 L 718-7) HCT (test code = 26.3 % 35.7-45.2 L 4544-3) MCV (test code = 74.9 fL 80.6-95.5 L 787-2) MCH (test code = 24.2 pg 25.9-32.8 L 785-6) MCHC (test code = 32.3 g/dL 31.6-35.1 786-4) RDW-SD (test code = 40.6 fL 39-49.9 67959-0) RDW-CV (test code = 14.9 % 12-15.5 788-0) PLT (test code = See_Comment [Automated 777-3) message] The sy stem which generated this result transmitted reference range : 166 - 358 10*3/ ?L. The reference r boogie was not used to interpret this result as normal/abnormal . MPV (test code = 10.9 fL 9.5-12.9 81661-0) NRBC/100 WBC (test See_Comment [Automat ed code = 1563856982) message] The system which generated this result transmitted reference range : 0.0 - 10.0 /100 WBCs. The refer ence range was not u sed to interpret th is result as normal/abnormal . NRBC x10^3 (test code <0.01 See_Comment [Auto mated = 8564308940) message] The s ystem which generated this result transmitted reference range : 10*3/?L. The reference range was not used to interpret this result as normal/abnormal . GRAN MAT (NEUT) % 57.7 % (test code = 770-8) IMM GRAN % (test code 0.30 % = 4348249360) LYMPH % (test code = 35.4 % 736-9) MONO % (test code = 6.2 % 5905-5) EOS % (test code = 0.1 % 713-8) BASO % (test code = 0.3 % 706-2) GRAN MAT x10^3(ANC) 3.97 10*3/uL 1.88-7.09 (test code = 4520963009) IMM GRAN x10^3 (test <0.03 0-0.06 code = 6124754740) LYMPH x10^3 (test code 2.44 10*3/uL 1.32-3.29 = 731-0) MONO x10^3 (test code 0.43 10*3/uL 0.33-0.92 = 742-7) EOS x10^3 (test code = <0.03 0.03-0.39 L 711-2) BASO x10^3 (test code <0.03 0.01-0.07 = 704-7) Lab Interpretation Abnormal (test code = 60271-5) [facility]. METABOLIC PANEL (89041)2018-09-20 14:46:00 Test Item Value Reference Range Interpretation Comments NA (test code = 139 mmol/L 135-145 9724580612) K (test code = 4.3 mmol/L 3.5-5 2240004719) CL (test code = 111 mmol/L 98-108 H 5952802261) CO2 TOTAL (test code 22 mmol/L 23-31 L = 3588107626) AGAP (test code = 2-16 8031813440) BUN (test code = 8 mg/dL 7-23 7701834460) GLUCOSE (test code = 91 mg/dL 70-110 8277871924) CREATININE (test 0.31 mg/dL 0.5-1.04 L code = 2647074231) TOTAL BILI (test 0.3 mg/dL 0.1-1.1 code = 7067421351) CALCIUM (test code = 8.1 mg/dL 8.6-10.6 L 9448007204) T PROTEIN (test code 6.4 g/dL 6.3-8.2 = 9708223922) ALBUMIN (test code = 3.3 g/dL 3.5-5 L 0484198555) ALK PHOS (test code 46 U/L 34-122 = 4875527768) ALT(SGPT) (test code 26 U/L 9-51 = 3299975337) AST(SGOT) (test code 27 U/L 13-40 = 9831347279) eGFR Calculation mL/min/1.73m2 (Non-) (test code = 5742129407) eGFR Calculation mL/min/1.73m2 () (test code = 0295133681) MONISHA (test code = Slight MONISHA) hemolysisAssociation of Glomerular Filtration Rate (GFR) and Staging of Kidney Disease*+ ------+ --+ --+| GFR (mL/min/1.73 m2)?| With Kidney Damage?|?Without Kidney Damage+ ----+ + +|?>90?|?Stage one?|? Normal?+ -----+ -+ -+|?60-89?|?Stage two?|? Decreased GFR? + +- +----- +|?30- 59?|?Stage three?|? Stage three? + +- +----- +|?15- 29?|?Stage four? |? Stage four??+ ----+ + +|?<15 (or dialysis)?|?Stage five? |? Stage five?+ ---+ + + *Each stage assumes the associated GFR level has been in effect for at least three months.?Stages 1 to 5, with or without kidney disease, indicate chronic kidney disease.Notes: Determination of stages one and two (with eGFR >59mL/min/1.73 m2) requires estimation of kidney damage for at least three months as defined by structural or functional abnormalities of the kidney, manifested by either:Pathological abnormalities or Markers of kidney damage (including abnormalities in the composition of the blood or urine or abnormalities in imaging tests). Lab Interpretation Abnormal (test code = 54441-5) [facility] Test Item Value Reference Range Interpretation Comments MAGNESIUM (test code = 4769701270) 1.9 mg/dL 1.7-2.4 Lab Interpretation (test code = Normal 55822-6) [facility] [id number] 12:20:00 Test Item Value Reference Range Interpretation Comments URINE CULTURE (test 10,000 - 100,000 CFU/mL code = 630-4) mixed aerobic organisms - suggests endogenous microbial contamination [facility] AMPLIFIED [id number] 22:10:00 Test Item Value Reference Range Interpretation Comments Trichomonas Nucleic Acid (test code Negative Negative = 92314-2) Lab Interpretation (test code = Normal 02809-5) [facility] CHLAMYDIA AMPLIFIED [id number] 21:55:00 Test Item Value Reference Range Interpretation Comments Lab Interpretation (test code = Normal 05412-6) [facility] PELVIS COMPLETE [id number] 14:22:59 Sonographic guidance provided for D&C. Postprocedure imagesdemonstrate no definite residual products of conception * * * * * * * * ORIGINAL REPORT * * * * * * * *EXAM: ULTRASOUND PELVIS HISTORY:?D&C Intra op US for ultrasound guided d&c TECHNIQUE:Transabdominal images of the uterus and adnexa are performedduring the procedure of D & C. Similar images are obtained during andafter the procedure. COMPARISON: 09/18/2018 FINDINGS:The images obtained post D&C demonstrate no residual retainedproducts within the endometrial cavity. No free fluid is seen within the uterus of the adnexa. There appears to ladonna Harris catheter in the urinary bladder.. [facility], Radiant Results Inft User - 09/19/2018 9:25 AM CDT* * * * * * * * ORIGINAL REPORT * * * * * * * *EXAM: ULTRASOUND PELVISHISTORY: D&C Intra op US for ultrasound guided d&cTECHNIQUE:Transabdominal images of the uterus and adnexa are performedduring the procedure of D & C. Similar images are obtained during andafter the procedure.COMPARISON: 09/18/2018FINDINGS:The images obtained post D&C demonstrate no residual retainedproducts within the endometrial cavity.No free fluid is seen within the uterus of the adnexa. There appears to ladonna Harris catheter in the urinary bladder..IMPRESSIONSonographic guidance provided for D&C. Postprocedure imagesdemonstrate no definite residual [facility] 2018-09-19 04:39:10 Heterogeneous/predominantly hypoechoic material within the endometrialcavity. Findings are likely secondary to retained products ofconception/blood products. Xander Guevara MD., have reviewed this study and agree with theabove report.EXAM: PELVIC ULTRASOUND, TRANSABDOMINAL AND TRANSVAGINAL HISTORY: discharge 5 weeks ago COMPARISON: None FINDINGS: UTERUS: The uterus measures 8.1 x 7.5 x 5.1 cm. The endometrium ishomogeneous and measures 3 mm in thickness. Heterogeneous, predominantlyhypoechoic debris noted within the endometrial cavity. OVARIES: The right ovary measures 2.7 x 2.4 x 1.4 cm. The left ovarymeasures 3.9 x 3.2 x 2.7 cm. Simple appearing cyst noted within the leftovary. No adnexal masses. PELVIS: No free fluid. [facility], Radiant Results Inft User - 09/18/2018 11:41 PM CDTEXAM: PELVIC ULTRASOUND, TRANSABDOMINAL AND TRANSVAGINALHISTORY: discharge 5 weeks ago COM PARISON: NoneFINDINGS: UTERUS: The uterus measures 8.1 x 7.5 x 5.1 cm. The endometrium ishomogeneousand measures 3 mm in thickness. Heterogeneous, predominantlyhypoechoic debris noted within the endometrial cavity.OVARIES: The right ovary measures 2.7 x 2.4 x 1.4 cm. The left ovarymeasures 3.9 x 3.2 x 2.7 cm. Simple appearing cyst noted within the leftovary. No adnexal masses.PELVIS: No free fluid.IMPRESSIONHeterogeneous/predominantly hypoechoic material within the endometrialcavity. Findings are likely secondary to retained products ofconception/blood products. Mau Guevara MD., have reviewed this study and agree with theabove report.[facility]XR [facility] 1 [id number] 03:56:14 No acute cardiopulmonary abnormality. Xander Guevara MD., have reviewed this study and agree with theabove report.EXAM: XR CHEST 1 VW COMPARISON: 09/02/2017 HISTORY: cough FINDINGS: Lungs: The lungs are clear. No pleural effusion or pneumothorax isidentified. Heart/Mediastinum: The cardiomediastinal silhouette is normal in size. Bones: No acute osseous abnormality is seen. [facility], Radiant Results Inft User - 09/18/2018 10:58 PM CDTEXAM: XR CHEST 1 VWCOMPARISON: 09/02/2017HISTORY: cough FINDING S:Lungs: The lungs are clear. No pleural effusion or pneumothorax isidentified.Heart/Mediastinum: The cardiomediastinal silhouette is normal in size.Bones: No acute osseous abnormality is seen.IMPRESSIONNo acute cardiopulmonary abnormality.Mau Guevara MD., have reviewed this study and agree with theabove report.[facility] HospitalLactic Acid Whole [id number] 03:56:00 Test Item Value Reference Range Interpretation Comments LACTIC ACID (test code = 0.77 mmol/L 0.5-2.2 8706672895) Lab Interpretation (test code = Normal 50789-5) [facility] HospitalCT ABDOMEN PELVIS W [id number] 03:06:[address] findings to explain patient's symptoms. 2.6 x 3 cm simple cyst in the left ovary. Xander Guevara MD., have reviewed this study and agree with theabove report.EXAM: CT ABDOMEN ANDPELVIS WITH CONTRAST HISTORY: 18-year-old female with "abdominal infection". Per chart review,patient was history of 14 weeks ago, currently with browndischarge. COMPARISON: CT abdomen and pelvis with contrast 02/13/2018. DOSE: 368mGycm TECHNIQUE AND FINDINGS: Contiguous axial imaging from the level of the lungbases through the pubic symphysis was performed after the uncomplicatedadministration of 120 cc of intravenous Omnipaque contrast. Coronal andsagittal reconstructions were obtained.?Auto mA and/or iterativereconstruction were used to reduce radiation dose. FINDINGS: LOWER THORAX: Thelungs bases are clear. No cardiomegaly. LIVER: No focal hepatic lesions.?Normal contour. GALLBLADDERAND BILIARY TREE: No biliary ductal dilation.?No gallbladderwall thickening. SPLEEN: No splenomegaly. PANCREAS: No ductal dilation or masses. ADRENAL GLANDS: No adrenal nodules. KIDNEYS: Symmetric enhancement. No hydronephrosis, stones, or masses. PERITONEUM AND RETROPERITONEUM: No free air or fluid. LYMPH NODES: No lymphadenopathy. GI TRACT: No dilation or wall thickening. The appendix is normal (2:94,100). PELVIS/BLADDER: The urinary bladder is minimally distended without wallthickening. The uterus and right ovary are unremarkable. A 2.6 x 3 cmsimple cyst is noted in the left ovary. VESSELS: Unremarkable. BONES AND SOFT TISSUES: No suspicious lytic or sclerotic bony lesions. [facility], Radiant Results Inft User - 09/18/2018 10:08 PM CDTEXAM: CT ABDOMEN AND PELVIS WITH CONTRASTHISTORY: 18-year-old female with "abdominal infection". Per chart review,patient was history of 14 weeks ago, currently with browndischarge.COMPARISON: CT abdomen and pelvis with contrast 02/13/2018.DOSE: 368mGycmTECHNIQUE AND FINDINGS: Contiguous axial imaging from the level of the lungbases through the pubic symphysis was performed after the uncomplicatedadministration of 120 cc of intravenous Omnipaque contrast.Coronal andsagittal reconstructions were obtained. Auto mA and/or iterativereconstruction were usedto reduce radiation dose.FINDINGS:LOWER THORAX: The lungs bases are clear. No cardiomegaly.LIVER: No focal hepatic lesions. Normal contour.GALLBLADDER AND BILIARY TREE: No biliary ductal dilation. Nogallbladderwall thickening.SPLEEN: No splenomegaly.PANCREAS: No ductal dilation or masses.ADRENAL GLANDS: No adrenal nodules.KIDNEYS: Symmetric enhancement. No hydronephrosis, stones, or masses.PERITONEUM AND RETROPERITONEUM: No free air or fluid.LYMPH NODES: No lymphadenopathy.GI TRACT: No dilation or wall thickening. The appendix is normal (2:94,100).PELVIS/BLADDER: The urinary bladder is minimallydistended without wallthickening. The uterus and right ovary are unremarkable. A 2.6 x 3 cmsimple cyst is noted in the left ovary.VESSELS: Unremarkable.BONES AND SOFT TISSUES: No suspicious lytic or sclerotic bony lesions.IMPRESSIONNo acute CT findings to explain patient's symptoms.2.6 x 3 cm simple cyst in the left ovary. IMau MD., have reviewed this study and agree with theabove report.[facility] HospitalEBV-MONONUCLEOSIS [id number] 02:59:00 Test Item Value Reference Range Interpretation Comments EBV Mononucleosis Screen (test code Negative Negative = 8664813301) Lab Interpretation (test code = Normal 54562-5) [facility] HospitalaPTT2019-08-06 02:13:00 Test Item Value Reference Range Interpretation Comments APTT Patient (test See_Comment [Automat ed code = 3173-2) message] The system which generated this result transmitted reference range : 23 - 38 Seconds . The reference range was not used to interpr et this result as normal/abnormal . MONISHA (test code = MONISHA) The [facility] patient population mean normal value for aPTT is 30 seconds. Lab Interpretation Normal (test code = 15018-4) [facility] HospitalRAPID STREP SCREEN FOR GROUP [id number] 02:12:00 Test Item Value Reference Range Interpretation Comments Streptococcus pyogenes (group A) Negative Negative antigen (test code = 21199-6) Lab Interpretation (test code = Normal 78093-9) [facility] HospitalADC,CLC OR LCC ONLY - INFLUENZA A & B DIRECT [id number] 02:12:00 Test Item Value Reference Range Interpretation Comments Lab Interpretation (test code = Normal 09696-6) [facility] HospitalProthrombin Time (PT) / [id number] 02:11:00 Test Item Value Reference Range Interpretation Comments PROTIME PATIENT (test See_Comment [Auto mated message] code = 5964-2) The system [employer] generated this result transmitted ref erence range: 12.0 - 1 4.7 Seconds. The re ference range was not u sed to interpret this result as normal/abnor mal. INR (test code = 6301-6) Nor mal INR <1.1; Warfarin Therap eutic range 2.0 to 3. 0 or 2.5 to 3.5, dep ending upon the indica tions. Lab Interpretation (test Normal code = 19926-9) [facility] HospitalUrinalysis2019-08-06 02:02:00 Test Item Value Reference Range Interpretation Comments APPEARANCE (test code = Clear Clear 0755410050) COLOR (test code = Yellow Yellow 3710263803) PH (test code = 4.8-8.0 8345248752) SP GRAVITY (test code = >=1.030 1.003-1.030 5833957779) GLU U QUAL (test code = Negative Negative 7367984564) BLOOD (test code = Moderate Negative A 8298756031) KETONES (test code = Negative Negative 7412859418) PROTEIN (test code = 100 mg/dL Negative A 2887-8) UROBILIN (test code = 1.0 mg/dL See_Comment [Auto mated message] 8376819472) The system [employer] h generated this result transmit lucina reference range : 0-1.0 mg/dL. Th e reference range was not used to interpret this result as normal/abnormal . BILIRUBIN (test code = Negative Negative 2576399768) NITRITE (test code = Negative Negative 7661705424) LEUK EMA (test code = Negative Negative 7235287016) RBC/HPF (test code = See_Comment H [Autom ated message] 0615646939) The system Booker generated this result transmit lucina reference range : 0 - 3 HPF. The refe rence range was not u sed to interpret th is result as normal/abnormal . WBC/HPF (test code = See_Comment [Autom ated message] 6890458562) The system Booker generated this result transmit lucina reference range : 0 - 5 HPF. The refe rence range was not u sed to interpret th is result as normal/abnormal . BACTERIA (test code = Many Negative A 7744644373) AMORPHOUS (test code = >10 mg/dL HPF 8680684779) SQ EPITH (test code = HPF 8583410285) Lab Interpretation (test Abnormal code = 74790-5) [facility] Metabolic Panel (NA, K, CL, CO2, GLUCOSE, BUN, CREATININE, CA)2018-09-19 02:01:00 Test Item Value Reference Range Interpretation Comments NA (test code = 139 mmol/L 135-145 0593197048) K (test code = 3.6 mmol/L 3.5-5 2932022128) CL (test code = 104 mmol/L 98-108 1698166208) CO2 TOTAL (test code = 25 mmol/L 23-31 7227914696) AGAP (test code = 2-16 3660748739) BUN (test code = 13 mg/dL 7-23 1816431418) GLUCOSE (test code = 107 mg/dL 70-110 7718588808) CREATININE (test code = 0.46 mg/dL 0.5-1.04 L 6223874615) CALCIUM (test code = 8.5 mg/dL 8.6-10.6 L 5998737308) eGFR Calculation mL/min/1.73m2 (Non-) (test code = 3213534305) eGFR Calculation mL/min/1.73m2 () (test code = 9165113058) MONISHA (test code = MONISHA) Association of Glomerular Filtration Rate (GFR) and Staging of Kidney Disease*+ + + +| GFR (mL/min/1.73 m2)?| With Kidney Damage?|?Without Kidney Damage+ --------+ --------+ +|?>90?|?S tage one?|? Normal?+ ---------+ ---------+ +|?60-89? |?Stage two?|? Decreased GFR? + --+ --+ ------+|?30-59?|?Stage three?|? Stage three? + --+ --+ ------+|?15-29?|?Stage four? |? Stage four?+ -------+ -------+ +|?<15 (or dialysis)?|?Stage five? |? Stage five?+ -------+ -------+ +*Each stage assumes the associated GFR level has been in effect for at least three months.?Stages 1 to 5, with or without kidney disease, indicate chronic kidney disease.Notes: Determination of stages one and two (with eGFR >59mL/min/1.73 m2) requires estimation of kidney damage for at least three months as defined by structural or functional abnormalities of the kidney, manifested by either:Pathological abnormalities or Markers of kidney damage (including abnormalities in the composition of the blood or urine or abnormalities in imaging tests). Lab Interpretation Abnormal (test code = 31915-5) [facility] HospitalHepatic Function Panel (ALB, T.PRO, BILI T, BU/BC, ALT, AST, ALK PHOS)2018-09-19 02:01:00 Test Item Value Reference Range Interpretation Comments TOTAL BILI (test code = 0049809467) 0.3 mg/dL 0.1-1.1 BILI UNCON (test code = 0138435308) 0.2 mg/dL 0.1-1.1 BILI CONJ (test code = 0191677928) 0.0 mg/dL 0-0.3 T PROTEIN (test code = 0506560507) 7.8 g/dL 6.3-8.2 ALBUMIN (test code = 7733313860) 4.2 g/dL 3.5-5 ALK PHOS (test code = 2811539444) 72 U/L 34-122 ALT(SGPT) (test code = 5292996538) 24 U/L 9-51 AST(SGOT) (test code = 8521072981) 21 U/L 13-40 Lab Interpretation (test code = Normal 54417-1) [facility] HospitalLipase [id number] 02:01:00 Test Item Value Reference Range Interpretation Comments LIPASE (test code = 1770561564) 63 U/L 0-220 Lab Interpretation (test code = Normal 47764-5) [facility] WITH [id number] 01:47:00 Test Item Value Reference Range Interpretation Comments WBC (test code = See_Comment [Automated 6690-2) message] The sy stem which generated this result transmitted reference range : 4.30 - 11.10 10*3/?L. The reference range was not used to interpret this result as normal/abnormal . RBC (test code = See_Comment [Automated 789-8) message] The sy stem which generated this result transmitted reference range : 3.93 - 5.25 10*6/?L. The reference range was not used to interpret this result as normal/abnormal . HGB (test code = 11.0 g/dL 11.6-15 L 718-7) HCT (test code = 34.1 % 35.7-45.2 L 4544-3) MCV (test code = 75.8 fL 80.6-95.5 L 787-2) MCH (test code = 24.4 pg 25.9-32.8 L 785-6) MCHC (test code = 32.3 g/dL 31.6-35.1 786-4) RDW-SD (test code = 39.8 fL 39-49.9 57525-4) RDW-CV (test code = 14.6 % 12-15.5 788-0) PLT (test code = See_Comment [Automated 777-3) message] The sy stem which generated this result transmitted reference range : 166 - 358 10*3/ ?L. The reference r boogie was not used to interpret this result as normal/abnormal . MPV (test code = 10.6 fL 9.5-12.9 05678-6) NRBC/100 WBC (test See_Comment [Automat ed code = 0341376260) message] The system which generated this result transmitted reference range : 0.0 - 10.0 /100 WBCs. The refer ence range was not u sed to interpret th is result as normal/abnormal . NRBC x10^3 (test code <0.01 See_Comment [Auto mated = 9704026938) message] The s ystem which generated this result transmitted reference range : 10*3/?L. The reference range was not used to interpret this result as normal/abnormal . GRAN MAT (NEUT) % 73.5 % (test code = 770-8) IMM GRAN % (test code 0.40 % = 9818534479) LYMPH % (test code = 17.5 % 736-9) MONO % (test code = 8.3 % 5905-5) EOS % (test code = 0.0 % 713-8) BASO % (test code = 0.3 % 706-2) GRAN MAT x10^3(ANC) 5.39 10*3/uL 1.88-7.09 (test code = 6398716021) IMM GRAN x10^3 (test 0.03 10*3/uL 0-0.06 code = 2029048864) LYMPH x10^3 (test code 1.28 10*3/uL 1.32-3.29 L = 731-0) MONO x10^3 (test code 0.61 10*3/uL 0.33-0.92 = 742-7) EOS x10^3 (test code = <0.03 0.03-0.39 L 711-2) BASO x10^3 (test code <0.03 0.01-0.07 = 704-7) Lab Interpretation Abnormal (test code = 51531-6) [facility] HospitalPOCT Test, [id number] 01:37:00 Test Item Value Reference Range Interpretation Comments POCT PREG (test code = 1605) negative On board controls acceptable with present C Line (test code = 3574) POCT PREG LOT # (test code = 3575) [id number] POCT PREG TEST DATE (test 2020-02-14 code = 3576) Lab Interpretation (test code = Normal 13693-0) [facility]
[2021-07-23] MEDS ORDERED: ONDANSETRON 4 MG (ODT) TAB ONE ×2 (13:35→13:43)
[2021-07-23] MEDS ORDERED: NA CHLORIDE 0.9% 1,000 ML ONE (13:43)
[2021-07-23] MEDS ORDERED: MORPHINE 4 MG/ML SYR ONE (13:49)
[2021-07-23 14:01] LABS: Urine Blood 2+ (Negative); Urine Glucose Negative (Negative); Urine Protein 1+ (Negative)
[2021-07-23] MEDS ORDERED: PANTOPRAZOLE 40 MG INJ ONE (14:12)
[2021-07-23 14:37] LABS: Barbiturates NEGATIVE (NEGATIVE); Benzodiazepines NEGATIVE (NEGATIVE); Cocaine NEGATIVE (NEGATIVE); METHAMPHETAM NEGATIVE (NEGATIVE); Methadone NEGATIVE (NEGATIVE); Opiates NEGATIVE (NEGATIVE); Phencyclidine NEGATIVE (NEGATIVE); THC Cannibis POSITIVE (NEGATIVE)
[2021-07-23 14:53] LABS: Urine Bacteria <20 /HPF (<20); Urine Mucus LIGHT /HPF (NONE SEEN); Urine RBC <5 /HPF (NONE SEEN)
[2021-07-23] MEDS ORDERED: CEFTRIAXONE 1000 MG/VIAL ONE (14:56)
[2021-07-23] MEDS ORDERED: ACETAMINOPHEN 500 MG TAB ONE (14:56)
[2021-07-23 15:02] LABS: Hematocrit 36.7 % (36.0-45.0); Lymphocytes % 12.9 % (15.3-44.8); MPV 9.4 fL (7.6-11.3); RBC Red Blood Cell Count 4.85 M/uL (3.86-4.86)
[2021-07-23 15:11] LABS: Albumin 3.5 g/dL (3.4-5.0); Bilirubin Total 0.4 mg/dL (0.2-1.0); Magnesium 2.2 mg/dL (1.8-2.4); Protein, Total 8.1 g/dL (6.4-8.2)
--- NOTE | 2021-07-23 16:42 | RAD REPORT ---
EXAM DESCRIPTION: CT - Abdomen Pelvis W Contrast - 07/23/2021 4:24 pm CLINICAL HISTORY: Abdominal pain/epigastric pain COMPARISON: 2019 TECHNIQUE: Computed axial tomography of the abdomen pelvis was obtained. 100 cc Isovue-300 was admin istered intravenously. Oral contrast was not requested which limits evaluation of bowel and appendix All CT scans are performed using dose optimization technique as appropriate and may include automated exposure control or mA/KV adjustment according to patient size. FINDINGS: The liver, spleen, pancreas, adrenal and kidneys appear unremarkable. There is no evidence of diverticulitis. Normal appendix No adnexal mass Tiny umbilical hernia IMPRESSION: No acute abnormality is displayed.
[2021-07-23] MEDS ORDERED: POTASSIUM 25 MEQ EFFERV TAB ONE (17:02)
--- NOTE | 2021-07-23 17:05 | ER ---
Nurse's Notes [facility] [place] Name: Josefa Jeffries Age: 21 yrs Sex: Female : 2000 Arrival Date: 07/23/2021 Time: 12:56 Bed 9 Private MD: Diagnosis: Diarrhea, unspecified;Nausea with vomiting, unspecified;Hypokalemia Presentation: 07/23 13:24 Chief complaint: Patient states: N/V/D, abd pain, [place] since Tuesday night after eating ll1 bad food from [employer]. Went to [facility] Tuesday, and left not feeling any better. Diagnosed with UTI, started antibiotics on Tuesday. Coronavirus screen: Vaccine status: Patient reports being unvaccinated. Client denies travel out of the [place] in the last 14 days. diarrhea, fatigue, fever, headache, nausea, vomiting. Client presents with at least one sign or symptom that may indicate coronavirus-19. Standard/surgical mask placed on the client. Ebola Screen: Patient denies travel to an Ebola-affected area in the 21 days before illness onset. Initial Sepsis Screen: Does the patient meet any 2 criteria? HR > 90 bpm. No. Patient's initial sepsis screen is negative. Does the patient have a suspected source of infection? Yes: Acute abdominal pain. Risk Assessment: Do you want to hurt yourself or someone else? Patient reports no desire to harm self or others. Onset of symptoms was July 19, 2021. 13:24 Method Of Arrival: Wheelchair ll1 13:24 Acuity: GAMAL 3 ll1 Historical: - Allergies: 13:27 No Known Allergies; ll1 - PMHx: 13:27 Anemia; ll1 - PSHx: 13:27 D\\T\\C; ll1 - Immunization history:: Client reports having NOT received the Covid vaccine. - Social history:: Smoking status: Patient denies any tobacco usage or history of. Screenin:45 Abuse screen: Denies threats or abuse. Denies injuries from another. Nutritional ld1 screening: No deficits noted. Tuberculosis screening: No symptoms or risk factors identified. Fall Risk None identified. Assessment: 14:44 General: Appears in no apparent distress. comfortable, Behavior is calm, cooperative, ld1 appropriate for age. Pain: Denies pain. Neuro: Level of Consciousness is awake, alert, obeys commands, Oriented to person, place, time, situation. Cardiovascular: Capillary refill < 3 seconds Patient's skin is warm and dry. Respiratory: Airway is patent Respiratory effort is even, unlabored. GI: Abdomen is round non-distended. : No signs and/or symptoms were reported regarding the genitourinary system. EENT: No signs and/or symptoms were reported regarding the EENT system. Derm: No signs and/or symptoms reported regarding the dermatologic system. Musculoskeletal: No signs and/or symptoms reported regarding the musculoskeletal system. Vital Signs: 13:24 BP 124 / 70; Pulse 112; Resp 18; Temp 100.7; Pulse Ox 99% ; Weight 77.11 kg; Height 5 ll1 ft. 2 in. (157.48 cm); Pain 6/10; 14:45 BP 125 / 91; Pulse 100; Resp 18; Pulse Ox 99% on R/A; ld1 16:09 BP 129 / 86; Pulse 94; Resp 18; Pulse Ox 99% on R/A; ld1 17:40 BP 118 / 79; Pulse 86; Resp 18; Pulse Ox 100% on R/A; ld1 13:24 Body Mass Index 31.09 (77.11 kg, 157.48 cm) ll1 ED Course: 12:56 Patient arrived in ED. rg4 13:00 Geoff Sam PA is PHCP. cp 13:00 Wilian Ahn MD is Attending Physician. cp 13:27 Triage completed. ll1 13:27 Arm band placed on. ll1 13:34 Mary Jo Greenberg, CAITLIN is Primary Nurse. ld1 14:23 COVID-19 SARS RT PCR (Document "Date of Onset" if Symptomatic) Sent. ld1 14:23 Influenza Screen (a \\T\\ B) Sent. ld1 14:40 Inserted saline lock: 22 gauge in left antecubital area, using aseptic technique. Blood ld1 collected. 14:45 Patient has correct armband on for positive identification. Placed in gown. Bed in low ld1 position. Call light in reach. Side rails up X2. arc welder on. Pulse ox on. NIBP on. Door closed. Noise minimized. Warm blanket given. 14:45 No provider procedures requiring assistance completed. ld1 16:26 CT Abd/Pelvis - IV Contrast Only In Process Unspecified. EDMS 17:40 IV discontinued, intact, bleeding controlled, No redness/swelling at site. ld1 Administered Medications: 13:34 Drug: Ondansetron 4 mg Route: PO; ll1 14:55 Follow up: Response: No adverse reaction ld1 14:44 Drug: NS 0.9% 1000 ml Route: IV; Rate: 1 bolus; Site: left antecubital; ld1 14:44 Drug: morphine 4 mg Route: IVP; Infused Over: 4 mins; Site: left antecubital; ld1 14:54 Follow up: Response: No adverse reaction ld1 14:44 Drug: ProTONIX (pantoprazole) 40 mg Route: IVP; Site: left antecubital; ld1 14:54 Follow up: Response: No adverse reaction ld1 14:54 Drug: Tylenol 1000 mg Route: PO; ld1 14:55 Follow up: Response: No adverse reaction ld1 14:54 Drug: Rocephin (cefTRIAXone) 1 grams Route: IV; Rate: calculated rate; Site: left ld1 antecubital; 14:55 Follow up: Response: No adverse reaction ld1 17:02 Drug: Potassium Effervescent Tablet 50 mEq Route: PO; ld1 Medication: 14:45 VIS not applicable for this client. ld1 Outcome: 17:05 Discharge ordered by . cp 17:40 Discharged to home ambulatory. ld1 17:40 Condition: stable 17:40 Discharge instructions given to patient, Instructed on discharge instructions, follow up and referral plans. medication usage, Demonstrated understanding of instructions, follow-up care, medications, Prescriptions given X 2. 17:40 Patient left the ED. ld1 Signatures: Dispatcher [employer] EDMS Geoff Sam PA PA cp Garcia, Rubi rg4 Bharti Fragoso RN RN ll1 Mary Jo Greenberg RN RN ld1
--- NOTE | 2021-07-23 17:05 | EDPHYS ---
Physician Documentation [facility] Name: Josefa Jeffries Age: 21 yrs Sex: Female : 2000 Arrival Date: 07/23/2021 Time: 12:56 Bed 9 Private MD: ED Physician Wilian Ahn HPI: 07/23 13:25 This 21 yrs old Female presents to ER via Unassigned with complaints of cp Vomiting, Fever. 13:25 The patient presents to the emergency department with nausea, that is moderate, cp vomiting, that is continuous, diarrhea, that is continuous. 13:25 Onset: The symptoms/episode began/occurred 4 day(s) ago. cp 13:25 Possible causes: bad food exposure, possibly bad restaurant food. cp 13:25 The patient has been recently seen by a physician: in [facility], 2 day(s) ago, with cp similar presenting complaints, and apparently given a diagnosis of UTI and prescribed antibiotics. 13:25 Associated signs and symptoms: Pertinent positives: abdominal pain, anorexia, diarrhea, cp fever, vomiting, headache, Pertinent negatives: GI bleeding. Severity of symptoms: in the emergency department the symptoms are unchanged despite home interventions. Historical: - Allergies: 13:27 No Known Allergies; ll1 - PMHx: 13:27 Anemia; ll1 - PSHx: 13:27 D\\T\\C; ll1 - Immunization history:: Client reports having NOT received the Covid vaccine. - Social history:: Smoking status: Patient denies any tobacco usage or history of. ROS: 13:30 Constitutional: Positive for body aches, fever, poor PO intake. cp 13:30 Eyes: Negative for injury, pain, redness, and discharge. cp 13:30 Cardiovascular: Negative for chest pain, palpitations. 13:30 Respiratory: Negative for cough, shortness of breath, wheezing. 13:30 Abdomen/GI: Positive for abdominal pain, nausea, vomiting, and diarrhea, Negative for constipation. Exam: 13:35 Constitutional: The patient appears in no acute distress, alert, awake, non-toxic, well cp developed, well nourished, febrile, uncomfortable. 13:35 Head/Face: Normocephalic, atraumatic. cp 13:35 Eyes: Periorbital structures: appear normal, Pupils: equal, round, and reactive to light and accomodation, Extraocular movements: intact throughout, Conjunctiva: normal, no exudate, no injection, Sclera: no appreciated abnormality, Lids and lashes: appear normal, bilaterally. 13:35 ENT: External ear(s): are unremarkable, Nose: is normal, Mouth: Lips: moist, Oral mucosa: pink and intact, moist, Posterior pharynx: Airway: no evidence of obstruction, patent, Tonsils: no enlargement, no exudate, erythema, that is mild, exudate, is not appreciated. 13:35 Neck: ROM/movement: is normal, is supple, no meningismus, no nuchal rigidity, Lymph nodes: no appreciated lymphadenopathy. 13:35 Chest/axilla: Inspection: normal, Palpation: is normal, no crepitus, no tenderness. 13:35 Cardiovascular: Rate: tachycardic, Rhythm: regular, Edema: is not appreciated, JVD: is not appreciated. 13:35 Respiratory: the patient does not display signs of respiratory distress, Respirations: normal, no use of accessory muscles, no retractions, labored breathing, is not present, Breath sounds: are clear throughout, no decreased breath sounds, no stridor, no wheezing. 13:35 Abdomen/GI: Inspection: abdomen appears normal, Bowel sounds: active, all quadrants, Palpation: soft, in all quadrants, moderate abdominal tenderness, in the epigastric area, right upper quadrant and left upper quadrant, rebound tenderness, is not appreciated, voluntary guarding, is elicited in the epigastric area, right upper quadrant and left upper quadrant. 13:35 Back: CVA tenderness, is absent. 13:35 Skin: no rash present. 13:35 Neuro: Orientation: to person, place \\T\\ time. Mentation: is normal, Motor: moves all fours, strength is normal. Vital Signs: 13:24 BP 124 / 70; Pulse 112; Resp 18; Temp 100.7; Pulse Ox 99% ; Weight 77.11 kg; Height 5 ll1 ft. 2 in. (157.48 cm); Pain 6/10; 14:45 BP 125 / 91; Pulse 100; Resp 18; Pulse Ox 99% on R/A; ld1 16:09 BP 129 / 86; Pulse 94; Resp 18; Pulse Ox 99% on R/A; ld1 17:40 BP 118 / 79; Pulse 86; Resp 18; Pulse Ox 100% on R/A; ld1 13:24 Body Mass Index 31.09 (77.11 kg, 157.48 cm) ll1 MDM: 13:38 Patient medically screened. cp 17:05 Data reviewed: vital signs, nurses notes, lab test result(s), radiologic studies, CT cp scan. 17:05 Differential diagnosis: gastritis, cholecystitis, appendicitis, viral gastroenteritis, cp gastroenteritis. Counseling: I had a detailed discussion with the patient and/or guardian regarding: the historical points, exam findings, and any diagnostic results supporting the discharge/admit diagnosis, lab results, radiology results, to return to the emergency department if symptoms worsen or persist or if there are any questions or concerns that arise at home. Response to treatment: the patient's symptoms have markedly improved after treatment, patient is well hydrated. Nausea, headache and abdomen pain markedly improved. No vomiting observed while monitoring patient in ED. Will discharge to home for continued monitoring. 07/23 13:25 Order name: CBC with Diff; Complete Time: 15:15 07/23 15:15 Interpretation: Normal except: MCV 75.8; MCH 25.3; RDW 15.9; CONSTANTINE% 81.9; LYM% 12.9. 07/23 13:25 Order name: CMP; Complete Time: 15:15 07/23 15:15 Interpretation: Normal except: NA 131; K 3.0; BUN 5; GLOB 4.6; A/G 0.8. 07/23 13:25 Order name: Lipase; Complete Time: 15:15 07/23 13:25 Order name: Urine Microscopic Only; Complete Time: 15:15 cp 07/23 13:25 Order name: Magnesium; Complete Time: 15:15 07/23 13:25 Order name: UDS; Complete Time: 14:41 07/23 14:41 Interpretation: Normal except: THC POSITIVE. 07/23 13:25 Order name: CT Abd/Pelvis - IV Contrast Only; Complete Time: 16:48 07/23 13:59 Order name: COVID-19 SARS RT PCR (Document "Date of Onset" if Symptomatic); Complete cp Time: 16:48 07/23 16:49 Interpretation: Reviewed. 07/23 13:59 Order name: Influenza Screen (a \\T\\ B); Complete Time: 16:48 cp 07/23 14:01 Order name: Urine Dipstick-Ancillary; Complete Time: 14:41 EDMS 07/23 14:41 Interpretation: Normal except: UKET 4+; UBLD 2+; UPROT 1+; UESTR Trace. cp 07/23 14:03 Order name: Urine --Ancillary (enter results) eb 07/23 13:25 Order name: IV Saline Lock; Complete Time: 13:42 cp 07/23 13:25 Order name: Labs collected and sent; Complete Time: 14:41 cp 07/23 13:25 Order name: Urine Dipstick-Ancillary (obtain specimen); Complete Time: 14:23 cp 07/23 13:25 Order name: Urine Test (obtain specimen); Complete Time: 14:23 cp 07/23 16:49 Order name: PO challenge; Complete Time: 17:02 cp Administered Medications: 13:34 Drug: Ondansetron 4 mg Route: PO; ll1 14:55 Follow up: Response: No adverse reaction ld1 14:44 Drug: NS 0.9% 1000 ml Route: IV; Rate: 1 bolus; Site: left antecubital; ld1 14:44 Drug: morphine 4 mg Route: IVP; Infused Over: 4 mins; Site: left antecubital; ld1 14:54 Follow up: Response: No adverse reaction ld1 14:44 Drug: ProTONIX (pantoprazole) 40 mg Route: IVP; Site: left antecubital; ld1 14:54 Follow up: Response: No adverse reaction ld1 14:54 Drug: Tylenol 1000 mg Route: PO; ld1 14:55 Follow up: Response: No adverse reaction ld1 14:54 Drug: Rocephin (cefTRIAXone) 1 grams Route: IV; Rate: calculated rate; Site: left ld1 antecubital; 14:55 Follow up: Response: No adverse reaction ld1 17:02 Drug: Potassium Effervescent Tablet 50 mEq Route: PO; ld1 Disposition: 17:16 Attestation: The patient's history, exam findings, diagnostics, and a summary of any jr11 interventions or procedures was reviewed in detail with Geoff STOVER. Disposition Summary: 07/23/21 17:05 Discharge Ordered Location: Home cp Problem: new cp Symptoms: have improved cp Condition: Stable cp Diagnosis - Diarrhea, unspecified cp - Nausea with vomiting, unspecified cp - Hypokalemia cp Followup: cp - With: Private Physician - When: 1 - 2 days - Reason: Recheck today's complaints Discharge Instructions: - Discharge Summary Sheet cp - Food Choices to Help Relieve Diarrhea, Adult cp - Diarrhea, Adult cp - Nausea and Vomiting, Adult cp Forms: - Medication Reconciliation Form cp - Thank You Letter cp - Antibiotic Education cp - Prescription Opioid Use cp Prescriptions: - Zofran 4 mg Oral Tablet - take 1 tablet by ORAL route every 12 hours As needed; 20 tablet; Refills: 0, cp Product Selection Permitted - Potassium Chloride 10 mEq Oral capsule, extended release - take 1 tablet by ORAL route every 12 hours for 3 days; 6 tablet; Refills: 0, cp Product Selection Permitted Signatures: Dispatcher [employer] EDMS Geoff Sam PA PA cp Lewis, Lynsay, RN RN ll1 Mary Jo Greenberg RN RN ld1 Wilian Ahn MD MD [id number]
[2021-07-23 17:50] VITALS: TEMP 100.7
[2021-07-23 17:55] VITALS: BP 118/79; O2SAT 100
== END 2021-07-23 17:40 | disposition home or self-care (01) ==
LOC: ER 12:55
DX: R11.2 Nausea with vomiting, unspecified (principal); E87.6 Hypokalemia; R19.7 Diarrhea, unspecified; Z20.822 Contact with and (suspected) exposure to COVID-19
CPT/HCPCS: 85025; 36415; 83735; 81025; 83690; 80053; 80307; 87804 ×2; 74177; 96375; 96374; 99284; U0003; Q9967; C9113; J7030; 81003; 81015